=== PATIENT | female | born 1945 | race African-American/Black ===

== ENCOUNTER 2016-07-30 14:10 | Observation (INO) | payer MEDICARE, MEDICAID ==
[2016-07-30] MEDS ORDERED: ASPIRIN 81 MG TABLET, CHEWABLE PO ONE (14:46)
--- NOTE | 2016-07-30 14:50 | ER Document Report ---
ED Medical Screen (RME) - General Chief Complaint: Chest Pain > 30 Stated Complaint: CHEST PAIN Mode of Arrival: Ambulatory Information source: Patient Notes: 70 y/o F presents to ED c/o intermittently persistent episodes of left sided chest pain over the last 2 weeks. Reports hx of CABG. States has not taken BP medication today. I have greeted and performed a rapid initial assessment of this patient. A comprehensive ED assessment and evaluation of the patient, analysis of test results and completion of the medical decision making process will be conducted by additional ED providers. TRAVEL OUTSIDE OF THE [place] IN LAST 30 DAYS: No - Related Data Allergies/Adverse Reactions: amlodipine besylate [From [employer]] Adverse Reaction (Unknown, Verified 07/30/16 14:44) cough Past Medical History - Past Medical History Cardiac Medical History: Reports: Hx Coronary Artery Disease, Hx Heart Attack, Hx Hypercholesterolemia, Hx Hypertension Pulmonary Medical History: Denies: Hx Tuberculosis Past Surgical History: Reports: Hx Cardiac Catheterization - 1 stent, Hx Cardiac Surgery - CABGx3, Hx Coronary Artery Bypass Graft, Hx Coronary Stent, Hx Hysterectomy - Immunizations Hx Diphtheria, Pertussis, Tetanus Vaccination: No Physical Exam - Vital signs Vitals: Temp Pulse Resp BP Pulse Ox 97.9 F 58 L 20 215/89 H 98 07/30/16 14:40 07/30/16 14:40 07/30/16 14:40 07/30/16 14:40 07/30/16 14:40 - General General appearance: Appears well, Alert In distress: None - Respiratory Respiratory status: No respiratory distress Breath sounds: Normal Course - Vital Signs Vital signs: Temp Pulse Resp BP Pulse Ox 97.9 F 58 L 20 215/89 H 98 07/30/16 14:40 07/30/16 14:40 07/30/16 14:40 07/30/16 14:40 07/30/16 14:40
--- NOTE | 2016-07-30 16:37 | EKG REPORT ---
SEVERITY:- NORMAL ECG - SINUS RHYTHM : Confirmed by: Allegra Johnson MD 30-Jul-2016 16:35:22
[2016-07-30 16:55] LABS: ABSOLUTE BASOPHILS # (AUTO) 0.1 10^3/uL (0.0-0.2); ABSOLUTE EOSINOPHILS # (AUTO) 0.1 10^3/uL (0.0-0.6); ABSOLUTE LYMPHOCYTES (AUTO) 1.8 10^3/uL (0.5-4.7); ABSOLUTE MONOCYTES (AUTO) 0.6 10^3/uL (0.1-1.4); ABSOLUTE NEUT (AUTO) 3.6 10^3/uL (1.7-8.2); BASOPHILS % (AUTO) 1.4 % (0-2); EOSINOPHILS % (AUTO) 2.2 % (0-6); HEMATOCRIT 38.2 % (36.0-47.0); HEMOGLOBIN 12.9 g/dL (12.0-15.5); HGB HCT DIFFERENCE 0.5; LYMPHOCYTES % (AUTO) 28.7 % (13-45); MEAN CORPUSCULAR HEMOGLOBIN 30.9 pg (27.0-33.4); MEAN CORPUSCULAR HGB CONC 33.9 g/dL (32.0-36.0); MEAN CORPUSCULAR VOLUME 91 fl (80-97); MONOCYTES % (AUTO) 9.4 % (3-13); RED BLOOD COUNT 4.18 10^6/uL (3.72-5.28); RED CELL DISTRIBUTION WIDTH 14.2 % (11.5-14.0); SEGMENTED NEUTROPHILS % (AUTO) 58.3 % (42-78); WHITE BLOOD COUNT 6.2 10^3/uL (4.0-10.5)
[2016-07-30 17:02] LABS: PROTHROMBIN TIME 12.6 SEC (11.4-15.4)
[2016-07-30 17:03] LABS: PARTIAL THROMBOPLASTIN TIME 35.9 SEC (23.5-35.8)
[2016-07-30 17:07] LABS: ALANINE AMINOTRANSFERASE 30 U/L (9-52); ALBUMIN 4.5 g/dL (3.5-5.0); ALKALINE PHOSPHATASE 89 U/L (38-126); ANION GAP 16 (5-19); ASPARTATE AMINO TRANSFERASE 23 U/L (14-36); BILIRUBIN,TOTAL 0.5 mg/dL (0.2-1.3); BLOOD UREA NITROGEN 9 mg/dL (7-20); CALCIUM 10.4 mg/dL (8.4-10.2); CARBON DIOXIDE 24 mmol/L (22-30); CHLORIDE 104 mmol/L (98-107); CREATINE KINASE 142 U/L (30-135); CREATININE RESULT 0.73 mg/dL (0.52-1.25); GLUCOSE 94 mg/dL (75-110); SODIUM 143.5 mmol/L (137-145); TOTAL PROTEIN 8.1 g/dL (6.3-8.2)
[2016-07-30 17:19] LABS: CREATINE KINASE MB 1.63 ng/mL (<4.55); TROPONIN I 0.016 ng/mL
--- NOTE | 2016-07-30 18:13 | ER Document Report ---
ED Cardiac - General Chief Complaint: Chest Pain > 30 Stated Complaint: CHEST PAIN Time seen by provider: 18:09 Mode of Arrival: Ambulatory Information source: Patient Notes: This is a 70-year-old female with a history of coronary artery disease that his been under a lot of stress lately taking care of her father who presents to the emergency room with left-sided chest pain. Patient describes the pain as sometimes heaviness sometimes sharp, nonradiating. Currently she is pain-free. TRAVEL OUTSIDE OF THE [place] IN LAST 30 DAYS: No - HPI Patient complains to provider of: Chest pain Use of: denies: Alcohol, Amphetamines, Bath salts, Caffeine, Cocaine, Decongestants, Other Was the onset of pain: Sudden Is the pain a: New problem Chest pain location: Substernal Quality of pain: Heaviness Chest pain radiation location: Left shoulder Severity now: None Severity at worst: Mild Pain level currently: Denies Cardiac risk factors: Hypertension, Hx [place] Positive cardiac history: Yes Associated symptoms: denies: Shortness of breath Exacerbated by: Denies Relieved by: Nothing Similar symptoms previously: Yes Recently seen / treated by doctor: Yes - Related Data Allergies/Adverse Reactions: amlodipine besylate [From [employer]] Adverse Reaction (Unknown, Verified 07/30/16 14:44) cough Home Medications: Current Home Medications Losartan Potassium [Losartan Potassium] 1 tab PO DAILY 07/30/16 [History] Rosuvastatin Calcium [Rosuvastatin Calcium] 1 tab PO DAILY 07/30/16 [History] Sotalol HCl [Sotalol] 40 mg PO DAILY 07/30/16 [History] Past Medical History - General Information source: Patient - Social History Smoking Status: Never Smoker Chew tobacco use (# tins/day): No Frequency of alcohol use: None Drug Abuse: None Lives with: Family Family History: Reviewed & Not Pertinent - FATHER IN 90's AND DOING WELL Patient has suicidal ideation: No Patient has homicidal ideation: No - Past Medical History Cardiac Medical History: Reports: Hx Atrial Fibrillation, Hx Coronary Artery Disease, Hx Heart Attack, Hx Hypercholesterolemia, Hx Hypertension Pulmonary Medical History: Denies: Hx Tuberculosis Renal/ Medical History: Denies: Hx Peritoneal Dialysis Past Surgical History: Reports: Hx Cardiac Catheterization - 1 stent, Hx Cardiac Surgery - CABGx3, Hx Coronary Artery Bypass Graft, Hx Coronary Stent, Hx Hysterectomy - Immunizations Hx Diphtheria, Pertussis, Tetanus Vaccination: No Review of Systems - Review of Systems Notes: Review of systems: Constitutional: Denies fever, chills. EENT: Denies ear pain, sinus tenderness, throat pain, throat swelling. Cardiovascular: See H&P Respiratory: Denies wheezing, cough, hemoptysis. Abdomen: Denies abdominal pain, nausea, vomiting, diarrhea. Denies BRBPR or melena. Genitourinary: Denies dysuria, pyuria, hematuria, flank pain. Musculoskeletal: denies joint pain or swelling, denies back pain. Neurologic: Denies headache, photophobia, neck stiffness, weakness. Denies loss of bowel or bladder function. Denies saddle anesthesia. Skin: Denies rash, lesions. Physical Exam - Vital signs Vitals: Temp Pulse Resp BP Pulse Ox 97.9 F 58 L 20 215/89 H 98 07/30/16 14:40 07/30/16 14:40 07/30/16 14:40 07/30/16 14:40 07/30/16 14:40 Notes: Physical exam: GENERAL: 70-year-old female, alert and oriented 3, no acute distress HEAD: Atraumatic, normocephalic. EYES: Pupils equal round and reactive to light, extraocular movements intact, sclera anicteric, conjunctiva are normal. ENT: TMs normal, nares patent, oropharynx clear without exudates. Moist mucous membranes. NECK: Normal range of motion, supple without lymphadenopathy or JVD. LUNGS: Breath sounds clear to auscultation bilaterally and equal. No wheezes rales or rhonchi. HEART: Regular rate and rhythm without murmurs, rubs or gallops. ABDOMEN: Soft, normoactive bowel sounds. No tenderness to palpation. No guarding, no rebound. No masses appreciated. EXTREMITIES: Normal range of motion, no pitting or edema. No clubbing or cyanosis. NEUROLOGICAL: Cranial nerves II through XII grossly intact. Normal speech, normal gait. PSYCH: Normal mood, normal affect. SKIN: Warm, Dry, normal turgor, no rashes or lesions noted. Course - Vital Signs Vital signs: Temp Pulse Resp BP Pulse Ox 97.9 F 55 L 15 129/72 H 100 07/30/16 14:40 07/30/16 19:16 07/30/16 21:01 07/30/16 21:01 07/30/16 17:00 - Laboratory Result Diagrams: 07/30/16 16:42 07/30/16 16:42 Laboratory results interpreted by me: 07/30/16 07/30/16 07/30/16 16:42 16:42 16:42 RDW 14.2 H APTT 35.9 H Calcium 10.4 H Creatine Kinase 142 H Ur Leukocyte Esterase 07/30/16 18:50 RDW APTT Calcium Creatine Kinase Ur Leukocyte Esterase SMALL H - Diagnostic Test Radiology reviewed: Image reviewed, Reports reviewed - Chest x-ray shows no infiltrates or effusions - EKG Interpretation by Me Rate: Normal Rhythm: NSR - EKG shows normal sinus rhythm with a ventricular rate of 61, no acute ST-T wave changes Discharge - Discharge Clinical Impression: chest pain Condition: Stable Disposition: ADMITTED OBSERVATION Admitting Provider: Hospitalist - Dr. Stafford Unit Admitted: Telemetry
[2016-07-30] MEDS ORDERED: ACETAMINOPHEN 325 MG TABLET PO PRN (18:52)
[2016-07-30] MEDS ORDERED: ONDANSETRON HCL INJ/PF 4 MG/2 ML SDV IV PRN ×2 (18:52→20:07)
[2016-07-30 18:58] LABS: APPEARANCE,URINE CLEAR; BILIRUBIN,URINE NEGATIVE (NEGATIVE); GLUCOSE, URINE NEGATIVE (NEGATIVE); KETONES,URINE NEGATIVE (NEGATIVE); LEUKOCYTE ESTERASE,URINE SMALL (NEGATIVE); NITRITE,URINE NEGATIVE (NEGATIVE); PROTEIN,URINE NEGATIVE (NEGATIVE); URINE SPECIFIC GRAVITY 1.008; UROBILINOGEN,URINE NEGATIVE mg/dL (<2.0)
--- NOTE | 2016-07-30 19:10 | PDOC H&P ---
History of Present Illness Admission Date/PCP: BHARTI KINCAID MD Patient complains of: Chest pain History of Present Illness: PREET MEDRANO is a 70 year old female, with atrial fibrillation on chronic anticoagulation, coronary artery disease with coronary artery bypass grafting in the past, hypertension as been dealing with chest pain for about 2-1/2 months. Pain is located at the left side and it is sharp in nature. It is no relation to activity. It is associated with shortness of breath and some sweating. At times there will be some nausea but no vomiting. Patient will have episodes of retching and eventually passing gas which is bittery in taste and the discomfort would get relieved. Patient was seen by rn transitional where the patient had workups reportedly were negative. The nature of the pain got worse in terms of sharpness earlier to date is why she presented to the hospital and was referred for admission. Past Medical History Past Medical History: Medications reconciliation pending verification for the patient's pharmacist Cardiac Medical History: Reports: Atrial Fibrillation, Coronary Artery Disease, Myocardial Infarction, Hyperlipidema, Hypertension Pulmonary Medical History: Denies: Tuberculosis Musculoskeltal Medical History: Reports: Gout Past Surgical History Past Surgical History: Reports: Cardiac Catheterization - 1 stent, Coronary Artery Bypass Graft, Coronary Stent, Hysterectomy Social History Information Source: Patient Smoking Status: Never Smoker Frequency of Alcohol Use: None Hx Recreational Drug Use: No Drugs: None Hx Prescription Drug Abuse: No Family History Family History: CAD, Other - Chronic kidney disease, brain aneurysm Parental Family History Reviewed: Yes Children Family History Reviewed: Yes Sibling(s) Family History Reviewed.: Yes Medication/Allergy Home Medications: Aspirin [Ecotrin 81 mg EC Tablet] 81 mg PO DAILY 07/31/13 Furosemide [Lasix] 40 mg PO DAILY 09/26/14 Potassium Chloride [K-Tab ER] 10 meq PO DAILY 09/26/14 Apixaban [Eliquis 5 mg Tablet] 5 mg PO Q12 #60 tablet 09/28/14 Lisinopril [Prinivil 5 mg Tablet] 10 mg PO DAILY #30 tablet 09/28/14 Metoprolol Tartrate [Lopressor 25 mg Tablet] 12.5 mg PO Q12 #30 tab 09/28/14 Allergies/Adverse Reactions: amlodipine besylate [From [facility]] Adverse Reaction (Unknown, Verified 07/30/16 14:44) cough Review of Systems Constitutional: ABSENT: chills, fever(s), headache(s), weakness, weight gain, weight loss Eyes: ABSENT: visual disturbances Ears: ABSENT: hearing changes Nose, Mouth, and Throat: ABSENT: mouth pain, sore throat Cardiovascular: PRESENT: chest pain, edema - Chronic left. ABSENT: dyspnea on exertion, orthropnea, palpitations Respiratory: PRESENT: dyspnea. ABSENT: cough, hemoptysis Gastrointestinal: ABSENT: abdominal pain, constipation, diarrhea, hematemesis, hematochezia, melena, nausea, vomiting Genitourinary: ABSENT: difficulty urinating, dysuria, hematuria Musculoskeletal: ABSENT: joint swelling Integumentary: ABSENT: pruritus, rash, wounds Neurological: ABSENT: abnormal gait, abnormal speech, confusion, dizziness, focal weakness, syncope Psychiatric: ABSENT: anxiety, depression, homidical ideation, suicidal ideation Endocrine: ABSENT: cold intolerance, heat intolerance, polydipsia, polyuria Hematologic/Lymphatic: ABSENT: easy bleeding, easy bruising Physical Exam Vital Signs: Temp Pulse Resp BP Pulse Ox 97.9 F 56 L 14 182/88 H 100 07/30/16 14:40 07/30/16 17:00 07/30/16 17:00 07/30/16 17:00 07/30/16 17:00 Intake & Output 07/29/16 07/30/16 07/31/16 06:59 06:59 06:59 Weight 90.2 kg General appearance: PRESENT: no acute distress, cooperative, obese Head exam: PRESENT: atraumatic, normocephalic Eye exam: PRESENT: conjunctiva pink, EOMI, PERRLA. ABSENT: scleral icterus Ear exam: PRESENT: normal external ear exam. ABSENT: drainage Mouth exam: PRESENT: moist, neck supple, tongue midline Throat exam: ABSENT: post pharyngeal erythema, tonsillar erythema Neck exam: ABSENT: carotid bruit, JVD, lymphadenopathy, thyromegaly Respiratory exam: PRESENT: clear to auscultation shasha. ABSENT: rales, rhonchi, wheezes Cardiovascular exam: PRESENT: RRR, +S1, +S2. ABSENT: diastolic murmur, rubs, systolic murmur Pulses: PRESENT: normal dorsalis pedis pul Vascular exam: PRESENT: normal capillary refill GI/Abdominal exam: PRESENT: normal bowel sounds, soft. ABSENT: distended, guarding, mass, organolmegaly, rebound, tenderness Rectal exam: PRESENT: deferred Extremities exam: PRESENT: full ROM. ABSENT: calf tenderness, clubbing, pedal edema Neurological exam: PRESENT: alert, awake, oriented to person, oriented to place , oriented to time, oriented to situation Psychiatric exam: PRESENT: appropriate affect, normal mood. ABSENT: homicidal ideation, suicidal ideation Skin exam: PRESENT: dry, intact, warm. ABSENT: cyanosis, rash Results Laboratory Results: 07/30/16 16:42 07/30/16 16:42 07/30/16 07/30/16 16:42 16:42 WBC 6.2 RBC 4.18 Hgb 12.9 Hct 38.2 MCV 91 MCH 30.9 MCHC 33.9 RDW 14.2 H Plt Count 216 Seg Neutrophils % 58.3 Lymphocytes % 28.7 Monocytes % 9.4 Eosinophils % 2.2 Basophils % 1.4 Absolute Neutrophils 3.6 Absolute Lymphocytes 1.8 Absolute Monocytes 0.6 Absolute Eosinophils 0.1 Absolute Basophils 0.1 Sodium 143.5 Potassium 4.0 Chloride 104 Carbon Dioxide 24 Anion Gap 16 BUN 9 Creatinine 0.73 Est GFR ( Amer) > 60 Est GFR (Non-Af Amer) > 60 Glucose 94 Calcium 10.4 H Total Bilirubin 0.5 AST 23 ALT 30 Alkaline Phosphatase 89 Total Protein 8.1 Albumin 4.5 07/30/16 07/30/16 16:42 16:42 Creatine Kinase 142 H CK-MB (CK-2) 1.63 Troponin I 0.016 Impressions: Chest X-Ray 07/30/16 14:50 IMPRESSION: Stable cardiomegaly. Old CABG. No acute infiltrates. Assessment & Plan - Diagnosis (1) Chest pain Qualifiers: Chest pain type: unspecified Qualified Code(s): R07.9 - Chest pain, unspecified Is this a current diagnosis for this admission?: Yes (2) Hypercalcemia Is this a current diagnosis for this admission?: Yes (3) Coronary artery disease Qualifiers: Coronary Disease-Associated Artery/Lesion type: [place] artery [place] vs. transplanted heart: [place] heart Associated angina: without angina Qualified Code(s): I25.10 - Atherosclerotic heart disease of [place] coronary artery without angina pectoris Is this a current diagnosis for this admission?: Yes (4) Hypertension Qualifiers: Hypertension type: essential hypertension Qualified Code(s): I10 - Essential (primary) hypertension Is this a current diagnosis for this admission?: Yes (5) Paroxysmal atrial fibrillation Is this a current diagnosis for this admission?: Yes (6) Gout Qualifiers: Gout site: unspecified site Gout etiology: unspecified cause Chronicity: unspecified Qualified Code(s): M10.9 - Gout, unspecified Is this a current diagnosis for this admission?: Yes - Time Time Spent: 30 to 50 Minutes - Plan Summary Plan Summary: Admit the patient to observation. The patient on oxygen and continue her aspirin. She is on long-term anticoagulation with eliquis. We will serially monitor cardiac enzymes and if negative patient can be discharged home. She prefers to have a follow-up with her rn transitional for further evaluation or stress test on an outpatient basis. In the meantime we will also do a d-dimer. Patient has some underlying GI symptoms as well. We will try proton pump inhibitor she will help her symptoms. Further testing depends on initial evaluation as outlined above.
[2016-07-30] MEDS: APIXABAN 5 MG TABLET PO SCH (22:55)
[2016-07-30] MEDS: METOPROLOL TARTRATE 25 MG TABLET PO SCH (22:57)
[2016-07-30] MEDS: NORMAL SALINE 1000 ML 1,000 ML IV PRN (22:58)
[2016-07-30 23:40] LABS: CREATINE KINASE MB 1.2 ng/mL (<4.55); TROPONIN I 0.027 ng/mL
[2016-07-31 05:39] LABS: ANION GAP 7 (5-19); BLOOD UREA NITROGEN 10 mg/dL (7-20); CALCIUM 9.2 mg/dL (8.4-10.2); CARBON DIOXIDE 26 mmol/L (22-30); CHLORIDE 109 mmol/L (98-107); CREATINE KINASE 111 U/L (30-135); CREATININE RESULT 0.64 mg/dL (0.52-1.25); GLUCOSE 103 mg/dL (75-110); POTASSIUM 3.7 mmol/L (3.6-5.0); SODIUM 141.7 mmol/L (137-145)
[2016-07-31 05:50] LABS: CREATINE KINASE MB 1.15 ng/mL (<4.55)
[2016-07-31 06:00] LABS: TROPONIN I < 0.012 ng/mL
[2016-07-31] MEDS ORDERED: LANSOPRAZOLE 30 MG TAB.RAP.DR PO SCH (06:00)
[2016-07-31] MEDS: NORMAL SALINE 1000 ML 1,000 ML IV PRN (09:40)
[2016-07-31] MEDS: METOPROLOL TARTRATE 25 MG TABLET PO SCH (09:53)
[2016-07-31] MEDS ORDERED: DOCUSATE SODIUM 100 MG CAPSULE PO SCH (10:00)
[2016-07-31] MEDS ORDERED: ASPIRIN 81 MG TABLET, ENT COATED PO SCH (10:00)
[2016-07-31] MEDS ORDERED: LISINOPRIL 5 MG TABLET PO SCH (10:00)
[2016-07-31 11:58] LABS: CREATINE KINASE MB 1.18 ng/mL (<4.55)
[2016-07-31 12:02] LABS: TROPONIN I < 0.012 ng/mL
[2016-07-31] MEDS: APIXABAN 5 MG TABLET PO SCH (16:02)
[2016-07-31 16:59] VITALS: BP 163/65
--- NOTE | 2016-08-01 07:46 | PDOC DISCHARGE SUMMARY ---
General - Admit/Disc Date/PCP Admission Date/Primary Care Provider: 07/30/16 18:52 BHARTI KINCAID MD Discharge Date: 07/31/16 - Discharge Diagnosis (1) Chest pain Is this a current diagnosis for this admission?: Yes (2) Hypercalcemia Is this a current diagnosis for this admission?: Yes (3) Coronary artery disease Is this a current diagnosis for this admission?: Yes (4) Hypertension Is this a current diagnosis for this admission?: Yes (5) Paroxysmal atrial fibrillation Is this a current diagnosis for this admission?: Yes (6) Gout Is this a current diagnosis for this admission?: Yes - Additional Information Resuscitation Status: Full Code Discharge Diet: Cardiac - low-fat low-salt Discharge Activity: Activity As Tolerated, Balance Activity w/Rest Home Medications: Apixaban [Eliquis 5 mg Tablet] 5 mg PO BID 07/31/16 Ciprofloxacin HCl [Cipro 500 mg Tablet] 500 mg PO BID #6 tablet 07/31/16 Furosemide 20 mg PO DAILY 07/31/16 Losartan Potassium 50 mg PO DAILY 07/31/16 Meclizine HCl 25 mg PO BID 07/31/16 Nifedipine [Nifedipine ER] 30 mg PO DAILY 07/31/16 Potassium Chloride 10 meq PO DAILY 07/31/16 Rosuvastatin Calcium [Crestor 20 mg Tablet] 20 mg PO QHS 07/31/16 Sotalol HCl [Sotalol] 80 mg PO BID 07/31/16 History of Present Illness Patient complains of: Chest pain History of Present Illness: PREET MEDRANO is a 70 year old female, with atrial fibrillation on chronic anticoagulation, coronary artery disease with coronary artery bypass grafting in the past, hypertension as been dealing with chest pain for about 2-1/2 months. Pain is located at the left side and it is sharp in nature. It is no relation to activity. It is associated with shortness of breath and some sweating. At times there will be some nausea but no vomiting. Patient will have episodes of retching and eventually passing gas which is bittery in taste and the discomfort would get relieved. Patient was seen by dispatcher maintenance service where the patient had workups reportedly were negative. The nature of the pain got worse in terms of sharpness earlier to date is why she presented to the hospital and was referred for admission. Hospital Course Hospital Course: The patient was admitted to telemetry. Serial cardiac enzymes were obtained and they were negative. Her d-dimer was normal. In terms of her hypercalcemia she was hydrated with normal saline, and subsequent monitoring normalized. Her diuretics were held. The patient's improved. She was placed on antiplatelet therapy as well as nasal cannula oxygen. She was continued on her apixiban for paroxysmal A. fib. There is no hospital stays unremarkable. The patient wants to continue workup on an outpatient basis with her dispatcher maintenance service. She was advised to see her dispatcher maintenance service in 1-2 weeks. Physical Exam Vital Signs: Temp Pulse Resp BP Pulse Ox 97.9 F 50 L 16 163/65 H 99 07/31/16 16:56 07/31/16 16:56 07/31/16 16:56 07/31/16 16:56 07/31/16 16:56 Intake & Output 07/31/16 08/01/16 08/02/16 06:59 06:59 06:59 Weight 92.5 kg General appearance: PRESENT: no acute distress, cooperative Head exam: PRESENT: normocephalic Eye exam: PRESENT: conjunctiva pink, EOMI Mouth exam: PRESENT: moist, neck supple Neck exam: ABSENT: JVD Respiratory exam: PRESENT: clear to auscultation shasha Cardiovascular exam: PRESENT: RRR GI/Abdominal exam: PRESENT: soft Neurological exam: PRESENT: alert, awake, oriented to situation Skin exam: ABSENT: cyanosis Results Laboratory Results: 07/31/16 05:05 07/30/16 07/30/16 07/31/16 23:04 23:04 05:05 Creatine Kinase 127 111 CK-MB (CK-2) 1.20 Troponin I 0.027 07/31/16 07/31/16 07/31/16 05:05 11:11 11:11 Creatine Kinase 115 CK-MB (CK-2) 1.15 1.18 Troponin I < 0.012 < 0.012 Impressions: Chest X-Ray 07/30/16 14:50 IMPRESSION: Stable cardiomegaly. Old CABG. No acute infiltrates. Qualifiers PATEINT BEING DISCHARGED WITH ANY OF THE FOLLOWING DIAGNOSIS?: No Plan Discharge Plan: Follow-up with primary care physician in one week. Follow-up with cardiology in 1-2 weeks. Time Spent: Less than 30 Minutes
== END 2016-07-31 17:12 | disposition home or self-care (01) ==
LOC: ER 14:10 → EH 18:52 → 4S 07-31 00:27
PROC: 3E0337Z Introduction of Electrolytic and Water Balance Substance into Peripheral Vein, Percutaneous Approach (ICD-10-PCS; principal; 2016-07-30)
PROC: 3E0337Z Introduction of Electrolytic and Water Balance Substance into Peripheral Vein, Percutaneous Approach (ICD-10-PCS; 2016-07-30)
DX: R07.9 Chest pain, unspecified (principal); E83.52 Hypercalcemia; I25.10 Atherosclerotic heart disease of native coronary artery without angina pectoris; I10 Essential (primary) hypertension; I48.0 Paroxysmal atrial fibrillation; M10.9 Gout, unspecified; Z79.01 Long term (current) use of anticoagulants; Z95.1 Presence of aortocoronary bypass graft; I25.2 Old myocardial infarction
CPT/HCPCS: 93005; 99285; 96360; 96361; 36415 ×2; 82553 ×2; 82550 ×2; 85025; 85610; 85730; 80048; 80053; 81001; 84484 ×2; 85379; 71020; 93010; G0378 ×2; A9270 ×5; J7030 ×2

== ENCOUNTER → 2017-04-13 | Outpatient (CLI) | payer MEDICARE, MEDICAID ==
--- NOTE | 2017-04-13 14:37 | WOMENS IMAGING REPORT ---
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 LIMITATIONS: None. FINDINGS: LUMBAR SPINE: The bone mineral density (BMD) measured from L1-L4 in the AP projection correlates with a T-score of -0.7, which is normal as defined by the World Health Organization. HIP: The bone mineral density (BMD) measured in the left hip correlates with a T-score of -1.3 in the femo ral neck, which is osteopenia as defined by the World Health Organization. IMPRESSION: 1. LUMBAR SPINE: NORMAL. 2. HIP: OSTEOPENIA. COMMENT: The patient's 10 year risk of major osteoporotic fracture is 3.5%. Her 10 year risk of hip fracture is 0.3%. The World Health Organization defines low BMD as follows: T-score: Normal: Greater than -1.0 Osteopenia: Between -1.0 and -2.5 Osteoporosis: Less than -2.5 without fractures Established osteoporosis: Less than -2.5 with fractures In general, you may wish to consider: Diagnosis Treatment Follow-up DEXA Normal BMD Prevention 2-3 years Osteopenia Prevention/Therapy 1-2 years Osteoporosis Therapy Yearly TECHNICAL DOCUMENTATION: JOB ID: [id number]- All Rights Reserved
--- NOTE | 2017-04-14 19:19 | WOMENS IMAGING REPORT ---
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 LIMITATIONS: None. FINDINGS: No masses, calcifications or architectural distortion. No areas of suspicion. Read with the assistance of CAD. .[facility] - R2 Cenova Version 1.3 .[facility] - R2 Cenova Version 1.3 .[facility] - R2 Cenova Version 2.4 .[facility] [place] - R2 Cenova Version 2.4 .[facility] - R2 [place] Version 9.2 IMPRESSION: NORMAL MAMMOGRAM. BIRADS 1. BREAST DENSITY: b. There are scattered areas of fibroglandular density. BIRAD: 1 NEGATIVE RECOMMENDATION: ROUTINE SCREENING Please continue yearly bilateral screening tomosynthesis in April 2018 COMMENT: The patient has been notified of the results by letter per SA requirements. Additional no tification policies are in place for contacting patient with suspicious or incomplete findings. Quality ID #[id number]: The [employer] recommends an annual screening mammogram for women aged 40 years or over. This facility utilizes a reminder system to ensure that all patients receive reminder letters, and/or direct phone calls for appointments. This includes reminders for routine scr eening mammograms, diagnostic mammograms, or other Breast Imaging Interventions when appropriate. Th is patient will be placed in the appropriate reminder system. The [employer] (ACR) has developed recommendations for screening MRI of the breast s in certain patient populations, to be used in conjunction with mammography. Breast MRI surveillanc e may be appropriate for women with more than 20% lifetime risk of developing breast cancer as deter mined by genetic testing, significant family history of the disease, or history of mantle radiation f or Hodgkins Disease. ACR Practice Guidelines 2008. DBT Technology DBT is a type of tomographic mammography. With conventional mammography, overlapping breast tissue ma y make lesions difficult to detect, even with good compression. DBT uses an x-ray tube that rotates a round the breast, taking images at different angles. These images are then combined to create thin sl ices of the breast that the radiologist can view as a 3D reconstruction. The [employer] unit can perform full-field digital mammograms (2D imaging); or DBT (3D imaging); or both, in a combination mode that quickly performs both the mammogram and the tomosynthesis scan while the breast is still compressed. PQRS 6045F: Fluoroscopic imaging is not utilized for breast tomosynthesis. TECHNICAL DOCUMENTATION: FINDING NUMBER: (1) ASSESSMENT: (1) JOB ID: [id number] [facility]- All Rights Reserved
== END ==
LOC: WI 13:13
PROVIDERS: ATTEND Internal Medicine
DX: Z12.31 Encounter for screening mammogram for malignant neoplasm of breast (principal); M81.0 Age-related osteoporosis without current pathological fracture
CPT/HCPCS: 77063; 77080; G0202; 77067

== ENCOUNTER → 2017-08-27 | Outpatient (CLI) | payer MEDICARE, MEDICAID ==
[2017-08-27 12:23] LABS: ANION GAP 10 (5-19); BLOOD UREA NITROGEN 13 mg/dL (7-20); CALCIUM 10.1 mg/dL (8.4-10.2); CARBON DIOXIDE 28 mmol/L (22-30); CHLORIDE 107 mmol/L (98-107); GLUCOSE 192 mg/dL (75-110); POTASSIUM 3.6 mmol/L (3.6-5.0); SODIUM 144.8 mmol/L (137-145)
== END ==
LOC: LAB 11:28
PROVIDERS: ATTEND Family Medicine
DX: M25.512 Pain in left shoulder (principal); M25.511 Pain in right shoulder; R53.81 Other malaise
CPT/HCPCS: 36415; 80048; 84443

== ENCOUNTER 2017-11-26 11:15 | Inpatient (IN) | payer MEDICARE, MEDICAID ==
[2017-11-26] MEDS ORDERED: ASPIRIN 81 MG TABLET, CHEWABLE PO ONE (11:21)
--- NOTE | 2017-11-26 11:52 | ER Document Report ---
ED Medical Screen (RME) - General Chief Complaint: Chest Pain Stated Complaint: CHEST PAIN Time Seen by Provider: 11/26/17 11:21 Mode of Arrival: Ambulatory Information source: Patient Notes: 72-year-old female history of ACiro chauhan on metoprolol and lisinopril who forgot to take her medications today presents with complaints of chest pain, she notes she has had chest pain for a while but now it happes more often and is sharper I have greeted and performed a rapid initial assessment of this patient. A comprehensive ED assessment and evaluation of the patient, analysis of test results and completion of the medical decision making process will be conducted by additional ED providers. PHYSICAL EXAMINATION: GENERAL: Well-appearing, well-nourished and in no acute distress. hypertensive HEAD: Atraumatic, normocephalic. EYES: Pupils equal round extraocular movements intact, conjunctiva are normal. ENT: Nares patent NECK: Normal range of motion LUNGS: No respiratory distress Musculoskeletal: Normal range of motion NEUROLOGICAL: Normal speech, normal gait. PSYCH: Normal mood, normal affect. SKIN: Warm, Dry, normal turgor, no rashes or lesions noted. TRAVEL OUTSIDE OF THE [place] IN LAST 30 DAYS: No - Related Data Allergies/Adverse Reactions: amlodipine besylate [From [employer]] Adverse Reaction (Unknown, Verified 11/26/17 11:20) cough Past Medical History - Past Medical History Cardiac Medical History: Reports: Hx Atrial Fibrillation, Hx Coronary Artery Disease, Hx Heart Attack, Hx Hypercholesterolemia, Hx Hypertension Denies: Hx DVT, Hx Pulmonary Embolism Pulmonary Medical History: Reports: Hx Sleep Apnea - CPAP pressure 15, room air Denies: Hx Asthma, Hx COPD, Hx Tuberculosis Neurological Medical History: Denies: Hx Seizures Endocrine Medical History: Denies: Hx Diabetes Mellitus Type 1, Hx Diabetes Mellitus Type 2, Hx Hyperthyroidism, Hx Hypothyroidism Renal/ Medical History: Denies: Hx Peritoneal Dialysis GI Medical History: Reports: Hx Gastroesophageal Reflux Disease. Denies: Hx Cirrhosis, Hx Hepatitis Musculoskeltal Medical History: Reports Hx Arthritis, Reports Hx Gout Psychiatric Medical History: Denies: Hx Depression Infectious Medical History: Denies: Hx C-Diff, Hx Hepatitis, Hx MRSA Past Surgical History: Reports: Hx Cardiac Catheterization - October 05, 2016, Dr. Elvis [facility] Hx Cardiac Surgery - CABGx3, Hx Coronary Artery Bypass Graft - 2006, three-vessel, Hx Coronary Stent, Hx Hysterectomy - Immunizations Hx Diphtheria, Pertussis, Tetanus Vaccination: No Physical Exam - Vital signs Vitals: Temp Pulse Resp BP Pulse Ox 98.6 F 53 L 15 209/66 H 99 11/26/17 11:35 11/26/17 11:35 11/26/17 11:35 11/26/17 11:35 11/26/17 11:35 Course - Vital Signs Vital signs: Temp Pulse Resp BP Pulse Ox 98.6 F 53 L 15 209/66 H 99 11/26/17 11:35 11/26/17 11:35 11/26/17 11:35 11/26/17 11:35 11/26/17 11:35 Doctor's Discharge - Discharge Referrals: GROVER ROME MD [Primary Care Provider] - Follow up as needed
--- NOTE | 2017-11-26 11:54 | ER Document Report ---
ED Cardiac <RENETTA JOHN - Last Filed: 11/26/17 13:35> - General Mode of Arrival: Ambulatory Information source: Patient TRAVEL OUTSIDE OF THE [place] IN LAST 30 DAYS: No <ISAK MOORE - Last Filed: 11/26/17 14:46> - General Chief Complaint: Chest Pain Stated Complaint: CHEST PAIN Time Seen by Provider: 11/26/17 11:21 Notes: Patient is a 72-year-old female who presents to the emergency department today with complaints of pain in her left breast that she describes as "deep" and sharp. Patient states she has been having pain for 4-5 months however it has gotten much more severe over the last few days. Patient states overnight last night was the most severe it has ever been. Patient is on Eliquis for A. fib. Patient states she has had associated dyspnea on exertion. (ISAK MOORE) - Related Data Allergies/Adverse Reactions: amlodipine besylate [From [employer]] Adverse Reaction (Unknown, Verified 11/26/17 11:20) cough Past Medical History - General Information source: Patient - Social History Smoking Status: Never Smoker Cigarette use (# per day): No Frequency of alcohol use: None Drug Abuse: None Family History: Reviewed & Not Pertinent - Past Medical History Cardiac Medical History: Reports: Hx Atrial Fibrillation, Hx Coronary Artery Disease, Hx Heart Attack, Hx Hypercholesterolemia, Hx Hypertension Pulmonary Medical History: Reports: Hx Sleep Apnea - CPAP pressure 15, room air GI Medical History: Reports: Hx Gastroesophageal Reflux Disease Musculoskeltal Medical History: Reports Hx Arthritis, Reports Hx Gout Past Surgical History: Reports: Hx Cardiac Catheterization - October 05, 2016, [facility]. [facility] Hx Cardiac Surgery - CABGx3, Hx Coronary Artery Bypass Graft - 2005, three-vessel, Hx Coronary Stent, Hx Hysterectomy - Immunizations Hx Diphtheria, Pertussis, Tetanus Vaccination: No <ISAK MOORE - Last Filed: 11/26/17 14:46> Review of Systems - Review of Systems Constitutional: No symptoms reported EENT: No symptoms reported Cardiovascular: See HPI, Chest pain Respiratory: See HPI, Short of breath Gastrointestinal: No symptoms reported Genitourinary: No symptoms reported Female Genitourinary: No symptoms reported Musculoskeletal: No symptoms reported Skin: No symptoms reported Hematologic/Lymphatic: No symptoms reported Neurological/Psychological: No symptoms reported -: Yes All other systems reviewed and negative <ISAK MOORE - Last Filed: 11/26/17 14:46> Physical Exam <RENETTA JOHN Francesca - Last Filed: 11/26/17 13:35> <ISAK MOORE - Last Filed: 11/26/17 14:46> - Vital signs Vitals: Pulse Ox 97 11/26/17 11:21 - Notes Notes: Physical Exam: General: Alert, appears well. HEENT: Normocephalic. Atraumatic. PERRL. Extraocular movements intact. Oropharynx clear. Neck: Supple. Non-tender. Respiratory: No respiratory distress. Clear and equal breath sounds bilaterally. Cardiovascular: Regular rate and rhythm. Abdominal: Normal Inspection. Non-tender. No distension. Normal Bowel Sounds. Back: Non-tender. No deformity or step off. Extremities: Moves all four extremities. Upper extremities: Normal inspection. Normal ROM. Lower extremities: Normal inspection. No edema. Normal ROM. Neurological: Normal cognition. AAOx4. Normal speech. Psychological: Normal affect. Normal Mood. Skin: Warm. Dry. Normal color. (ISAK MOORE) Course - Laboratory Result Diagrams: 11/26/17 12:13 11/26/17 12:13 <RENETTA JOHN Francesca - Last Filed: 11/26/17 13:35> - Laboratory Result Diagrams: 11/26/17 12:13 11/26/17 12:13 <ISAK MOORE - Last Filed: 11/26/17 14:46> - Re-evaluation Re-evalutation: 11/26/17 13:32 Initial workup negative. Due to patient's risk factors will be admitted for further chest pain rule out evaluation. (RENETTA JOHN) - Vital Signs Vital signs: Temp Pulse Resp BP Pulse Ox 98.6 F 53 L 18 164/68 H 100 11/26/17 11:35 11/26/17 11:35 11/26/17 14:00 11/26/17 13:02 11/26/17 14:00 - Laboratory Laboratory results interpreted by me: 11/26/17 11/26/17 12:13 12:13 Hct 35.4 L RDW 15.2 H Chloride 109 H - EKG Interpretation by Me Additional EKG results interpreted by me: 11/26/17 13:35 1124am Rate of 52 Atrial fibrillation Meets criteria for left ventricular hypertrophy leads I and aVL No significant change from 01/17/2017 (RENETTA JOHN) Discharge - Discharge Admitting Provider: NEELA Orellana Unit Admitted: Telemetry <RENETTA JOHN - Last Filed: 11/26/17 13:35> <ISAK MOORE - Last Filed: 11/26/17 14:46> - Discharge Clinical Impression: Chest pain Qualifiers: Chest pain type: unspecified Qualified Code(s): R07.9 - Chest pain, unspecified Condition: Good Disposition: ADMITTED OBSERVATION Scribe Documentation - Scribe Written by Scribe:: Christopher Boyd, 11/26/2017 1446 acting as scribe for :: Raheem <ISAK MOORE - Last Filed: 11/26/17 14:46>
--- NOTE | 2017-11-26 12:24 | RADIOLOGY REPORT (SQ) ---
EXAM DESCRIPTION: CHEST SINGLE VIEW COMPLETED DATE/TIME: 11/26/2017 12:03 pm REASON FOR STUDY: chest pain COMPARISON: 01/17/2017 EXAM PARAMETERS: NUMBER OF VIEWS: One view. TECHNIQUE: Single frontal radiographic view of the chest acquired. RADIATION DOSE: NA LIMITATIONS: None. FINDINGS: LUNGS AND PLEURA: No opacities, masses or pneumothorax. No pleural effusion. MEDIASTINUM AND HILAR STRUCTURES: No masses. Contour normal. HEART AND VASCULAR STRUCTURES: Heart size is borderline. There is no failure. BONES: No acute findings. HARDWARE: Sternotomy wires. Graft markers. OTHER: No other significant finding. IMPRESSION: Cardiomegaly without CHF. TECHNICAL DOCUMENTATION: JOB ID: [id number] [employer]- All Rights Reserved Reading location - IP/workstation name: [email or web address]
[2017-11-26 12:33] LABS: ABSOLUTE BASOPHILS # (AUTO) 0.1 10^3/uL (0.0-0.2); ABSOLUTE EOSINOPHILS # (AUTO) 0.1 10^3/uL (0.0-0.6); ABSOLUTE LYMPHOCYTES (AUTO) 1.3 10^3/uL (0.5-4.7); ABSOLUTE MONOCYTES (AUTO) 0.6 10^3/uL (0.1-1.4); ABSOLUTE NEUT (AUTO) 3.6 10^3/uL (1.7-8.2); BASOPHILS % (AUTO) 1.2 % (0-2); EOSINOPHILS % (AUTO) 2.3 % (0-6); HEMATOCRIT 35.4 % (36.0-47.0); HEMOGLOBIN 12.1 g/dL (12.0-15.5); LYMPHOCYTES % (AUTO) 22.6 % (13-45); MEAN CORPUSCULAR HEMOGLOBIN 31.3 pg (27.0-33.4); MEAN CORPUSCULAR VOLUME 92 fl (80-97); MONOCYTES % (AUTO) 10.5 % (3-13); PLATELET COUNT 192 10^3/uL (150-450); RED BLOOD COUNT 3.86 10^6/uL (3.72-5.28); RED CELL DISTRIBUTION WIDTH 15.2 % (11.5-14.0); SEGMENTED NEUTROPHILS % (AUTO) 63.4 % (42-78); TOTAL CELLS COUNTED % (AUTO) 100 %; WHITE BLOOD COUNT 5.7 10^3/uL (4.0-10.5)
[2017-11-26 12:52] LABS: ALANINE AMINOTRANSFERASE 18 U/L (9-52); ALBUMIN 3.8 g/dL (3.5-5.0); ALKALINE PHOSPHATASE 57 U/L (38-126); ANION GAP 9 (5-19); ASPARTATE AMINO TRANSFERASE 16 U/L (14-36); BILIRUBIN,DIRECT 0.2 mg/dL (0.0-0.4); BILIRUBIN,TOTAL 0.5 mg/dL (0.2-1.3); BLOOD UREA NITROGEN 12 mg/dL (7-20); CALCIUM 9.9 mg/dL (8.4-10.2); CARBON DIOXIDE 26 mmol/L (22-30); CHLORIDE 109 mmol/L (98-107); CREATINE KINASE 65 U/L (30-135); GLUCOSE 93 mg/dL (75-110); POTASSIUM 3.8 mmol/L (3.6-5.0); SODIUM 144.1 mmol/L (137-145); TOTAL PROTEIN 6.5 g/dL (6.3-8.2)
[2017-11-26 13:04] LABS: CREATINE KINASE MB 1.67 ng/mL (<4.55); TROPONIN I 0.019 ng/mL
[2017-11-26] MEDS ORDERED: IPRATROPIUM/ALBUTEROL 0.5-2.5 MG/3 ML AMPUL NEB PRN (15:13)
[2017-11-26] MEDS ORDERED: ACETAMINOPHEN 325 MG TABLET PO PRN (15:13)
[2017-11-26] MEDS ORDERED: MAGNESIUM HYDROXIDE SUSP 30 ML UDCUP PO PRN (15:20)
[2017-11-26] MEDS ORDERED: DOCUSATE SODIUM 100 MG CAPSULE PO PRN (15:20)
[2017-11-26] MEDS ORDERED: MAG HYDROX/AL HYDROX/SIMETH SUSP 30 ML UDCUP PO PRN (15:20)
[2017-11-26] MEDS ORDERED: ONDANSETRON HCL INJ/PF 4 MG/2 ML SDV IV PRN (15:20)
[2017-11-26 15:28] LABS: TROPONIN I 0.017 ng/mL
[2017-11-26] MEDS ORDERED: ALBUTEROL SULFATE 0.083% NEB 2.5 MG/3 ML AMPUL NEB PRN (15:29)
[2017-11-26] MEDS ORDERED: LORAZEPAM 0.5 MG TABLET PO PRN (15:32)
[2017-11-26] MEDS ORDERED: NITROGLYCERIN 0.4 MG/TAB 25 TAB/BOTTLE SL PRN (15:35)
--- NOTE | 2017-11-26 16:01 | EKG REPORT ---
SEVERITY:- ABNORMAL ECG - SINUS RHYTHM WITH APCs LVH WITH SECONDARY REPOLARIZATION ABNORMALITY ANTERIOR Q WAVES, POSSIBLY DUE TO LVH VS ASMI : Confirmed by: Olesya Escobar 26-Nov-2017 16:00:31
--- NOTE | 2017-11-26 16:24 | RADIOLOGY REPORT (SQ) ---
EXAM DESCRIPTION: CT HEAD WITHOUT COMPLETED DATE/TIME: 11/26/2017 4:12 pm REASON FOR STUDY: Vertigo, ataxia ? subacute posterior cva R07.89 OTHER CHEST PAIN R00.2 PALPITATI ONS R73.03 PREDIABETES COMPARISON: CT brain 03/24/2014 TECHNIQUE: Axial images acquired through the brain without intravenous contrast. Images reviewed wi th bone, brain and subdural windows. Additional sagittal and coronal reconstructions were generated. Images stored on PACS. All CT scanners at this facility use dose modulation, iterative reconstruction, and/or weight based d osing when appropriate to reduce radiation dose to as low as reasonably achievable (ALARA). [facility]: Dose Right [facility]: CareDose [facility]: Dose Right [facility]: Teradose 4D [facility]: [employer] RADIATION DOSE: CT Rad equipment meets quality standard of care and radiation dose reduction techniq ues were employed. CTDIvol: 53.2 mGy. DLP: 1017 mGy-cm. mGy. LIMITATIONS: None. FINDINGS: VENTRICLES: Normal size and contour. CEREBRUM: No CT evidence of acute large territory ischemic change, acute intracranial hemorrhage, mas s effect, or midline shift. Minimal spotty bifrontal and biparietal low attenuation in the deep hemis pheric white matter likely minimal age-appropriate small vessel ischemic change. This is stable comp ared to prior study. CEREBELLUM: No masses. No hemorrhage. No alteration of density. No evidence for acute infarction. EXTRAAXIAL SPACES: No fluid collections. No masses. ORBITS AND GLOBE: No intra- or extraconal masses. Bilateral cataract surgery. CALVARIUM: No fracture. PARANASAL SINUSES: No fluid or mucosal thickening. SOFT TISSUES: No mass or hematoma. OTHER: No other significant finding. IMPRESSION: No acute findings EVIDENCE OF ACUTE STROKE: NO. COMMENT: Quality ID # [id number]: Final reports with documentation of one or more dose reduction techniques (e.g., Automated exposure control, adjustment of the mA and/or kV according to patient size, use of iterative reconstruction technique) TECHNICAL DOCUMENTATION: JOB ID: [id number] [employer]- All Rights Reserved Reading location - IP/workstation name: [email or web address]
--- NOTE | 2017-11-26 16:28 | PDOC H&P ---
History of Present Illness Admission Date/PCP: 11/26/17 14:04 GROVER ROME MD Patient complains of: Chest pain, dyspnea on exertion, vertigo, ataxia History of Present Illness: PREET MEDRANO is a 72 year old female with a past medical history significant for CABG x 3, atrial fibrillation, chronically anticoagulated on Eliquis, prediabetes, LLE lymphadenopathy secondary to femoral graft site, hypertension, and anxiety who presents to the emergency department today with multiple complaints. The patient reports 4-5 months of progressively worsening dyspnea on exertion, intermittent chest pain that has become more constant over time, palpitations, fatigue, worsening LLE edema, dizziness, and ataxia. The patient is a poor historian and cannot recall the specifics of recent cardiac workup, but does indicate that she may have possibly had an echocardiogram, nuclear stress test, or cardiac cath (or any combination of) within the last 6 months at [facility]. Evaluation in the emergency department is unremarkable with a benign chest x-ray , normal laboratory evaluation, negative initial troponin, and EKG demonstrating atrial fibrillation. She is referred to the hospitalist service for admission and evaluation of the above stated complaints. Past Medical History Cardiac Medical History: Reports: Atrial Fibrillation, Coronary Artery Disease, Myocardial Infarction, Hyperlipidema, Hypertension Denies: DVT, Pulmonary Embolism Pulmonary Medical History: Reports: Sleep Apnea - CPAP pressure 15, room air Denies: Asthma, Chronic Obstructive Pulmonary Disease (COPD), Tuberculosis EENT Medical History: Reports: None Neurological Medical History: Reports: None Denies: Seizures Endocrine Medical History: Reports: Obesity Denies: Diabetes Mellitus Type 1, Diabetes Mellitus Type 2, Hyperthyroidism, Hypothyroidism Renal/ Medical History: Reports: None Malignancy Medical History: Reports: None GI Medical History: Reports: Gastroesophageal Reflux Disease Denies: Cirrhosis, Hepatitis Musculoskeltal Medical History: Reports: Arthritis, Gout Skin Medical History: Reports: None Psychiatric Medical History: Denies: Depression, General Anxiety Disorder, Tobacco Dependency Traumatic Medical History: Reports: None Hematology: Reports: None Infectious Medical History: Denies: Clostridium Difficile, Methicillin-Resistant Staph Aureus Past Surgical History Past Surgical History: Reports: Cardiac Catheterization - October 05, 2016, Dr. Elvis Field [facility]., Coronary Artery Bypass Graft - 2005, three-vessel, Hysterectomy Social History Information Source: Patient Lives with: Family Smoking Status: Former Smoker Number of Years Smokin Last Time Smoked: 20 years ago Frequency of Alcohol Use: None Hx Recreational Drug Use: No Drugs: None Hx Prescription Drug Abuse: No - Advance Directive Resuscitation Status: Full Code Surrogate healthcare decision maker:: The patient's [id number], Michelle Medrano, Family History Family History: Reviewed & Not Pertinent Parental Family History Reviewed: Yes Children Family History Reviewed: Yes Sibling(s) Family History Reviewed.: Yes Medication/Allergy Home Medications: Potassium Chloride [K-Tab ER] 20 meq PO DAILY 01/18/17 Apixaban [Eliquis 5 mg Tablet] 5 mg PO BID 11/26/17 Cyanocobalamin (Vitamin B-12) [Vitamin B12] 2,500 mcg PO DAILY 11/26/17 Furosemide [Lasix 20 mg Tablet] 20 mg PO QAMP PRN 11/26/17 Levalbuterol Tartrate [Xopenex Hfa] 2 puff IH BID 11/26/17 Losartan Potassium [Losartan Potassium] 50 mg PO DAILY 11/26/17 Meclizine HCl [Antivert 25 mg Tablet] 25 mg PO DAILYP PRN 11/26/17 Nifedipine [Nifedipine ER] 30 mg PO QAM 11/26/17 Blachly-3 Fatty Acids/Fish Oil [Fish Oil 1,000 mg Capsule] 1 each PO DAILY Rosuvastatin Calcium [Crestor 10 mg Tablet] 10 mg PO QHS 11/26/17 Sertraline HCl [Zoloft 50 mg Tablet] 50 mg PO QAM 11/26/17 Sotalol HCl [Sotalol] 40 mg PO BID 11/26/17 Allergies/Adverse Reactions: amlodipine besylate [From [facility]] Adverse Reaction (Unknown, Verified 11/26/17 11:20) cough Review of Systems Constitutional: PRESENT: fatigue, weakness. ABSENT: chills, fever(s), headache( s), weight gain, weight loss Eyes: ABSENT: visual disturbances Ears: ABSENT: hearing changes Nose, Mouth, and Throat: PRESENT: other - voice hoarseness Cardiovascular: PRESENT: chest pain, dyspnea on exertion, edema, orthropnea, palpitations Respiratory: PRESENT: dyspnea. ABSENT: cough, hemoptysis Gastrointestinal: ABSENT: abdominal pain, constipation, diarrhea, hematemesis, hematochezia, nausea, vomiting Genitourinary: ABSENT: dysuria, hematuria Musculoskeletal: ABSENT: joint swelling Integumentary: ABSENT: rash, wounds Neurological: PRESENT: abnormal gait, tremor(s), vertigo, weakness. ABSENT: abnormal speech, confusion, dizziness, focal weakness, syncope Psychiatric: ABSENT: anxiety, depression, homidical ideation, suicidal ideation Endocrine: ABSENT: cold intolerance, heat intolerance, polydipsia, polyuria Hematologic/Lymphatic: ABSENT: easy bleeding, easy bruising Physical Exam Vital Signs: Temp Pulse Resp BP Pulse Ox 98.6 F 53 L 16 163/75 H 98 11/26/17 11:35 11/26/17 11:35 11/26/17 15:01 11/26/17 15:01 11/26/17 15:01 General appearance: PRESENT: no acute distress, cooperative, obese, well- developed, well-nourished Head exam: PRESENT: atraumatic, normocephalic Eye exam: PRESENT: conjunctiva pink, EOMI, PERRLA. ABSENT: scleral icterus Ear exam: PRESENT: normal external ear exam Mouth exam: PRESENT: moist, tongue midline Neck exam: PRESENT: carotid bruit. ABSENT: JVD, lymphadenopathy, thyromegaly Respiratory exam: PRESENT: clear to auscultation shasha, symmetrical, unlabored. ABSENT: rales, rhonchi, wheezes Cardiovascular exam: PRESENT: bradycardia, irregular rhythm, +S1, +S2. ABSENT: diastolic murmur, rubs, systolic murmur Pulses: PRESENT: normal dorsalis pedis pul Vascular exam: PRESENT: normal capillary refill GI/Abdominal exam: PRESENT: normal bowel sounds, soft. ABSENT: distended, guarding, mass, organolmegaly, rebound, tenderness Rectal exam: PRESENT: deferred Extremities exam: PRESENT: full ROM. ABSENT: calf tenderness, clubbing, pedal edema Musculoskeletal exam: PRESENT: ambulatory Neurological exam: PRESENT: alert, awake, oriented to person, oriented to place , oriented to time, oriented to situation, CN II-XII grossly intact. ABSENT: motor sensory deficit Psychiatric exam: PRESENT: anxious, appropriate affect, normal mood. ABSENT: homicidal ideation, suicidal ideation Skin exam: PRESENT: dry, intact, warm. ABSENT: cyanosis, rash Results Laboratory Results: 11/26/17 14:48 Troponin I 0.017 NT-Pro-B Natriuret Pep 243 Impressions: Chest X-Ray 11/26/17 11:21 IMPRESSION: Cardiomegaly without CHF. Assessment & Plan - Diagnosis (1) Chest pain Qualifiers: Chest pain type: unspecified Qualified Code(s): R07.9 - Chest pain, unspecified Is this a current diagnosis for this admission?: Yes Plan: Patient complains of 3-4 months of progressively worsening chest pain and dyspnea on exertion. The chest pain is constant but worsened by ambulation. Chest pain is to left sternal border, nonradiating, and associated with dyspnea and palpitations. She is unable to identify alleviating symptoms. Most likely cause of chest pain is anxiety or musculoskeletal as the pain is occasionally reproducible with arm movement and palpation. However, given multiple risk factors, will initiate chest pain rule out. The patient has multiple risk factors including age, obesity, previous DE, CAD, CABG, hypertension. Chest x-ray demonstrated cardiomegaly without heart failure. EKG demonstrates atrial fibrillation; no ST segment elevation or depression. Initial troponin is negative. Pro BNP 243 The patient is admitted to the medical floor on continuous cardiac telemetry. We will obtain records from [facility] regarding echocardiogram, stress testing, cardiac cath. We will trend troponins. Obtain A1c and lipid panel with a.m. lab work. Will obtain Chest CT to rule out other possible causes for discomfort (pt is concerned regarding lung CA 2/2 tobacco history, dyspnea, pain, fatigue, etc.). Low suspicion for pulmonary emboli as the patient is chronically anticoagulated on Eliquis. (2) Dizziness Is this a current diagnosis for this admission?: Yes Plan: The patient reports onset of dizziness at same time as chest pain. Symptoms are constant and worsened by movements and resulting in ataxia. The patient reports a continuous feeling of falling forward into the left. Differential includes BPPV, anxiety, and posterior CVA. No focal deficits are noted at this time. We will check thyroid panel. Obtain CT of the head and Carotid Dopplers. A1c and lipid panel with a.m. labs Orthostatic blood pressures. Physical therapy evaluation. (3) Dyspnea on exertion Is this a current diagnosis for this admission?: Yes Plan: Unclear etiology; potential causes include COPD, CHF, deconditioning (age, weight), anxiety, less likely malignancy or pulmonary embolism. The patient is maintaining oxygen saturations on room air. Chest x-ray reveals cardiomegaly without heart failure. ProBNP is 243 The patient does endorse a recent history of wheezing and rescue inhaler use. She is uncertain with regard to diagnosis of COPD or asthma. We will obtain chest CT, PFTs. She will be provided supplemental oxygen as needed. CPAP nightly. As needed nebulizer treatments. (4) Fatigue Qualifiers: Fatigue type: unspecified Qualified Code(s): R53.83 - Other fatigue Is this a current diagnosis for this admission?: Yes Plan: Unclear etiology; again may be related to underlying cardiac or respiratory disease. The patient is noted to be bradycardic with heart rate in the 50s; fatigue may be directly related to heart rate or beta-andre therapy. May also be related to endocrine disorder (adrenal insufficiency, hypothyroidism). H&H are appropriate; low suspicion for B12 deficiency. We will obtain a.m. cortisol level. Remaining plan as above. (5) GERD (gastroesophageal reflux disease) Is this a current diagnosis for this admission?: Yes Plan: Pepcid (6) Hypertension Qualifiers: Hypertension type: essential hypertension Qualified Code(s): I10 - Essential (primary) hypertension Is this a current diagnosis for this admission?: Yes Plan: We will continue the patient's home medication regiment; losartan 50 mg twice daily, for the pain 30 mg daily, sotalol 80 mg daily. Consider reduction of sotalol for bradycardia and fatigue. (7) Coronary artery disease Qualifiers: Coronary Disease-Associated Artery/Lesion type: [place] artery [place] vs. transplanted heart: [place] heart Associated angina: without angina Qualified Code(s): I25.10 - Atherosclerotic heart disease of [place] coronary artery without angina pectoris Plan: Continue Eliquis, atorvastatin, omega-3, daily aspirin (8) Carotid bruit Qualifiers: Laterality: bilateral Qualified Code(s): R09.89 - Other specified symptoms and signs involving the circulatory and respiratory systems Is this a current diagnosis for this admission?: Yes Plan: Will obtain carotid doppler ultra sound. (9) JENN on CPAP Is this a current diagnosis for this admission?: Yes Plan: CPAP qHS. - Time Time Spent: Greater than 70 Minutes Medications reviewed and adjusted accordingly: Yes Anticipated discharge: Home Within: within 24 hours
--- NOTE | 2017-11-26 16:28 | RADIOLOGY REPORT (SQ) ---
EXAM DESCRIPTION: CT CHEST WITHOUT COMPLETED DATE/TIME: 11/26/2017 4:12 pm REASON FOR STUDY: chest pain, dyspnea on exertion R07.89 OTHER CHEST PAIN R00.2 PALPITATIONS R73.0 3 PREDIABETES COMPARISON: Chest films 11/26/2017, 01/17/2017, 07/30/2016 TECHNIQUE: CT scan performed of the chest without intravenous contrast. Images reviewed with lung, soft tissue and bone windows. Reconstructed coronal and sagittal MPR images reviewed. All images st ored on PACS. All CT scanners at this facility use dose modulation, iterative reconstruction, and/or weight based d osing when appropriate to reduce radiation dose to as low as reasonably achievable (ALARA). [facility]: Dose Right [facility]: CareDose [facility]: Dose Right [facility]: Teradose 4D [facility]: Game Face Hockey RADIATION DOSE: CT Rad equipment meets quality standard of care and radiation dose reduction techniq ues were employed. CTDIvol: 14.4 mGy. DLP: 549 mGy-cm. mGy. LIMITATIONS: No technical limitations. FINDINGS: LUNGS AND PLEURA: No masses, infiltrates, pneumothorax. No pleural effusions, calcificati ons. HILAR AND MEDIASTINAL STRUCTURES: No identified masses or abnormal nodes. No obvious aneurysm. HEART AND VASCULAR STRUCTURES: CABG. Marked cardiomegaly. No pericardial effusion. UPPER ABDOMEN: Small hiatal hernia. Stones in the gallbladder without gallbladder wall thickening or pericholecystic fluid. THYROID AND OTHER SOFT TISSUES: No masses. No adenopathy. BONES: No significant finding. HARDWARE: None in the chest. OTHER: No other significant findings. IMPRESSION: Cardiomegaly and old sternotomy with CABG. No acute infiltrates. No pleural effusion. No pericardial effusion. TECHNICAL DOCUMENTATION: JOB ID: [id number] Quality ID # [id number]: Final reports with documentation of one or more dose reduction techniques (e.g., Au tomated exposure control, adjustment of the mA and/or kV according to patient size, use of iterative reconstruction technique) 2010 [employer]- All Rights Reserved Reading location - IP/workstation name: [email or web address]
--- NOTE | 2017-11-26 17:32 | RADIOLOGY REPORT (SQ) ---
EXAM DESCRIPTION: CAROTID DOPPLER COMPLETED DATE/TIME: 11/26/2017 5:10 pm REASON FOR STUDY: carotid bruit; TIA/CVA symptoms R07.89 OTHER CHEST PAIN R00.2 PALPITATIONS R73.0 3 PREDIABETES COMPARISON: None. TECHNIQUE: Grayscale ultrasound, Doppler velocity and spectra, and color Doppler images acquired of the extra-cranial carotid and vertebral arteries. Images stored on PACS. LIMITATIONS: None. FINDINGS: RIGHT CAROTID CCA Velocities: Within normal limits. ICA Velocities Peak systolic 1.58 m/s. End diastolic 0.46 m/s. Proximal ICA/CCA peak systolic ratio 2.57. Scattered plaque. LEFT CAROTID CCA Velocities: Within normal limits. ICA Velocities Peak systolic 1.19 m/s. End diastolic 0.48 m/s. Proximal ICA/CCA peak systolic ratio 2.07. Scattered plaque VERTEBRAL ARTERIES: Antegrade flow. Normal waveforms. SUBCLAVIAN ARTERIES: No finding. OTHER: No other significant finding. IMPRESSION: SCATTERED PLAQUE. 50- 69% STENOSIS OF THE RIGHT INTERNAL CAROTID ARTERY. BORDERLINE 50 - 69% STENOSIS OF THE LEFT INTERNAL CAROTID ARTERY. COMMENT: Quality ID #[id number]: Velocity criteria are extrapolated from the diameter data as defined by t he Society of Radiologists in Ultrasound Consensus Conference. Radiology 2003: 229; 340-346. TECHNICAL DOCUMENTATION: JOB ID: [id number] [employer]- All Rights Reserved Reading location - IP/workstation name: [email or web address]
[2017-11-26] MEDS: APIXABAN 5 MG TABLET PO SCH (18:17)
[2017-11-26] MEDS ORDERED: HEPARIN SOD (PORCINE) 5,000 UNIT/ML 1 ML SYRINGE SUBCUT SCH (22:00)
[2017-11-26] MEDS ORDERED: ATORVASTATIN CALCIUM 20 MG TABLET PO SCH (22:00)
[2017-11-26] MEDS: FAMOTIDINE 20 MG TABLET PO SCH (22:11)
[2017-11-26] MEDS: LOSARTAN POTASSIUM 50 MG TABLET PO SCH (22:11)
[2017-11-27] MEDS ORDERED: HYDRALAZINE HCL INJ/PF 20 MG/1 ML SDV IV PRN (03:10)
[2017-11-27 07:44] LABS: HEMATOCRIT 33.5 % (36.0-47.0); HEMOGLOBIN 11.4 g/dL (12.0-15.5); MEAN CORPUSCULAR HEMOGLOBIN 31.3 pg (27.0-33.4); MEAN CORPUSCULAR HGB CONC 34.1 g/dL (32.0-36.0); MEAN CORPUSCULAR VOLUME 92 fl (80-97); PLATELET COUNT 176 10^3/uL (150-450); RED BLOOD COUNT 3.65 10^6/uL (3.72-5.28); RED CELL DISTRIBUTION WIDTH 14.7 % (11.5-14.0); WHITE BLOOD COUNT 5.2 10^3/uL (4.0-10.5)
[2017-11-27 07:59] LABS: ANION GAP 9 (5-19); BLOOD UREA NITROGEN 14 mg/dL (7-20); CALCIUM 9.5 mg/dL (8.4-10.2); CARBON DIOXIDE 26 mmol/L (22-30); CHLORIDE 110 mmol/L (98-107); CHOLESTEROL 243.52 mg/dL (0-200); GLUCOSE 92 mg/dL (75-110); TRIGLYCERIDES 80 mg/dL (<150)
[2017-11-27] MEDS: SERTRALINE HCL 50 MG TABLET PO SCH (07:59)
[2017-11-27] MEDS ORDERED: NIFEDIPINE 30 MG TAB.ER.24 PO SCH ×2 (08:00→10:00)
[2017-11-27] MEDS ORDERED: SOTALOL HCL 80 MG TABLET PO SCH (08:00)
[2017-11-27] MEDS: HYDRALAZINE HCL INJ/PF 20 MG/1 ML SDV IV PRN ×2 (08:17→14:20)
[2017-11-27 08:20] LABS: DIRECT LDL 152 mg/dL (<100)
[2017-11-27] MEDS: HYDROCHLOROTHIAZIDE 12.5 MG CAPSULE PO SCH (08:20)
[2017-11-27 08:24] LABS: FREE T4 (FREE THYROXINE) 0.83 ng/dL (0.78-2.19)
[2017-11-27 08:38] LABS: THYROID STIMULATING HORMONE 2.79 uIU/mL (0.47-4.68)
[2017-11-27] MEDS ORDERED: ATORVASTATIN CALCIUM 20 MG TABLET PO SCH (08:50)
[2017-11-27] MEDS ORDERED: COSYNTROPIN INJ 0.25 MG VIAL IV ONE (10:00)
[2017-11-27] MEDS ORDERED: (PENDING PHARMACY ID) (Cyanocobalamin (Vitamin B-12) [Vitamin B12] 2,500 MCG) PO SCH (10:00)
[2017-11-27] MEDS ORDERED: (PENDING PHARMACY ID) (Omega-3 Fatty Acids/Fish Oil [Fish Oil 1,000 Mg Capsule] 1 EACH) PO SCH (10:00)
[2017-11-27] MEDS ORDERED: METOPROLOL TARTRATE 25 MG TABLET PO SCH (10:00)
[2017-11-27] MEDS ORDERED: METOPROLOL TARTRATE 50 MG TABLET PO SCH (10:00)
[2017-11-27] MEDS: CYANOCOBALAMIN (VITAMIN B-12) 1,000 MCG TABLET PO SCH (10:57)
[2017-11-27] MEDS: LOSARTAN POTASSIUM 50 MG TABLET PO SCH ×2 (10:57→22:12)
[2017-11-27] MEDS: OMEGA-3 ACID ETHYL ESTERS 1 GM CAPSULE PO SCH (10:57)
[2017-11-27] MEDS: FAMOTIDINE 20 MG TABLET PO SCH ×2 (10:58→22:12)
[2017-11-27] MEDS: POTASSIUM CHLORIDE 10 MEQ CAPSULE.ER PO SCH (10:58)
[2017-11-27] MEDS: ASPIRIN 81 MG TABLET, CHEWABLE PO SCH (10:58)
[2017-11-27] MEDS: METOPROLOL TARTRATE 25 MG TABLET PO SCH (10:59)
[2017-11-27] MEDS: APIXABAN 5 MG TABLET PO SCH ×2 (10:59→18:09)
--- NOTE | 2017-11-27 14:06 | RADIOLOGY REPORT (SQ) ---
EXAM DESCRIPTION: MRA HEAD WITHOUT; MRI HEAD WITHOUT COMPLETED DATE/TIME: 11/27/2017 1:28 pm REASON FOR STUDY: Vertigo, ataxia. ? subacute posterior CVA. R07.89 OTHER CHEST PAIN R00.2 PALPITA TIONS R73.03 PREDIABETES COMPARISON: CT brain 11/26/2017. TECHNIQUE: Multiplanar imaging includes non-contrasted T1, T2, FLAIR, and diffusion with ADC map seq uences. Images stored on PACS. LIMITATIONS: Mild motion artifact on the MRA images. FINDINGS: ANATOMY: Empty sella. Midline structures otherwise intact. CSF SPACES: Generally age-appropriate without evidence of mass or hemorrhage. CEREBRUM: Patchy bilateral deep periventricular white matter foci, small vessel disease. No parenchy mal hemorrhage, mass or shift evident. POSTERIOR FOSSA: No signal alteration. No hemorrhage. No edema, masses or mass effect. Internal sonia tory canals, cerebello-pontine angles, mastoids normal. DIFFUSION IMAGING: Negative for acute or sub-acute infarction. ORBITS: No masses. Globes normal. PARANASAL SINUSES: No fluid levels. Mucosa normal. OTHER: No other significant finding. MRA head SOURCE IMAGES: No unexpected findings on source images. No large masses. 3-D MIP: No aneurysm. No occlusions. No significant stenosis of the cerebral arteries. OTHER: No other significant finding. IMPRESSION: 1. No acute intracranial abnormality. No recent CVA. Small vessel disease, chronic isabel nge suggested. 2. Normal [place]. EVIDENCE OF ACUTE STROKE: NO. TECHNICAL DOCUMENTATION: JOB ID: [id number] [employer]- All Rights Reserved Reading location - IP/workstation name: [email or web address]
--- NOTE | 2017-11-27 14:06 | RADIOLOGY REPORT (SQ) ---
EXAM DESCRIPTION: MRA HEAD WITHOUT; MRI HEAD WITHOUT COMPLETED DATE/TIME: 11/27/2017 1:28 pm REASON FOR STUDY: Vertigo, ataxia. ? subacute posterior CVA. R07.89 OTHER CHEST PAIN R00.2 PALPITA TIONS R73.03 PREDIABETES COMPARISON: CT brain 11/26/2017. TECHNIQUE: Multiplanar imaging includes non-contrasted T1, T2, FLAIR, and diffusion with ADC map seq uences. Images stored on PACS. LIMITATIONS: Mild motion artifact on the MRA images. FINDINGS: ANATOMY: Empty sella. Midline structures otherwise intact. CSF SPACES: Generally age-appropriate without evidence of mass or hemorrhage. CEREBRUM: Patchy bilateral deep periventricular white matter foci, small vessel disease. No parenchy mal hemorrhage, mass or shift evident. POSTERIOR FOSSA: No signal alteration. No hemorrhage. No edema, masses or mass effect. Internal sonia tory canals, cerebello-pontine angles, mastoids normal. DIFFUSION IMAGING: Negative for acute or sub-acute infarction. ORBITS: No masses. Globes normal. PARANASAL SINUSES: No fluid levels. Mucosa normal. OTHER: No other significant finding. MRA head SOURCE IMAGES: No unexpected findings on source images. No large masses. 3-D MIP: No aneurysm. No occlusions. No significant stenosis of the cerebral arteries. OTHER: No other significant finding. IMPRESSION: 1. No acute intracranial abnormality. No recent CVA. Small vessel disease, chronic isabel nge suggested. 2. Normal [place]. EVIDENCE OF ACUTE STROKE: NO. TECHNICAL DOCUMENTATION: JOB ID: [id number] [employer]- All Rights Reserved Reading location - IP/workstation name: [email or web address]
--- NOTE | 2017-11-27 16:53 | PDOC PROGRESS REPORT ---
Subjective Progress Note for:: 11/27/17 Subjective:: PREET MEDRANO is a 72 year old female with a past medical history significant for CABG x 3, atrial fibrillation, chronically anticoagulated on Eliquis, prediabetes, LLE lymphadenopathy secondary to femoral graft site, hypertension, and anxiety who was admitted on 11/26/17 with multiple vague complaints of fatigue, vertigo, ataxia, dyspnea on exertion concerning for possible subacute posterior CVA versus medication interaction versus adrenal insufficiency. Patient is seen on morning rounds. She found resting in bed comfortably with her friend present. She reports that she is tired today because she had difficulty sleeping in the hospital but otherwise is feeling well today. She was up ambulatory in the hallways with physical therapy this morning. Physical therapy states they did not note any deficits. The patient's laboratory and imaging results were reviewed thus far. All questions were answered in detail. The patient denies current headaches, dizziness, chest pain, palpitations, dyspnea, orthopnea, abdominal pain, nausea vomiting and diarrhea. Reason For Visit: CHEST PAIN,DYSPNEA ON EXERTION,ATAXIA Physical Exam Vital Signs: Temp Pulse Resp BP Pulse Ox 98.2 F 63 19 141/59 H 97 11/27/17 15:01 11/27/17 15:01 11/27/17 15:01 11/27/17 15:01 11/27/17 15:01 Intake & Output 11/26/17 11/27/17 11/28/17 06:59 06:59 06:59 Intake Total 335 Balance 335 Weight 86 kg General appearance: PRESENT: no acute distress, cooperative, obese, well- developed, well-nourished Head exam: PRESENT: atraumatic, normocephalic Eye exam: PRESENT: conjunctiva pink, EOMI, PERRLA. ABSENT: nystagmus, scleral icterus Ear exam: PRESENT: normal external ear exam Mouth exam: PRESENT: moist, tongue midline Neck exam: ABSENT: carotid bruit, JVD, lymphadenopathy, thyromegaly Respiratory exam: PRESENT: clear to auscultation shasha, symmetrical, unlabored. ABSENT: rales, rhonchi, wheezes Cardiovascular exam: PRESENT: bradycardia, irregular rhythm. ABSENT: diastolic murmur, rubs, systolic murmur Pulses: PRESENT: normal dorsalis pedis pul Vascular exam: PRESENT: normal capillary refill GI/Abdominal exam: PRESENT: normal bowel sounds, soft. ABSENT: distended, guarding, mass, organolmegaly, rebound, tenderness Rectal exam: PRESENT: deferred Extremities exam: PRESENT: full ROM. ABSENT: calf tenderness, clubbing, pedal edema Neurological exam: PRESENT: alert, awake, oriented to person, oriented to place , oriented to time, oriented to situation, CN II-XII grossly intact. ABSENT: motor sensory deficit Psychiatric exam: PRESENT: appropriate affect, normal mood. ABSENT: homicidal ideation, suicidal ideation Skin exam: PRESENT: dry, intact, warm. ABSENT: cyanosis, rash Results Laboratory Results: 11/27/17 06:04 11/27/17 06:04 11/27/17 11/27/17 11/27/17 06:04 06:04 06:04 WBC 5.2 RBC 3.65 L Hgb 11.4 L Hct 33.5 L MCV 92 MCH 31.3 MCHC 34.1 RDW 14.7 H Plt Count 176 Sodium 145.0 Potassium 4.0 Chloride 110 H Carbon Dioxide 26 Anion Gap 9 BUN 14 Creatinine 0.66 Est GFR ( Amer) > 60 Est GFR (Non-Af Amer) > 60 Glucose 92 Calcium 9.5 Triglycerides 80 Cholesterol 243.52 H LDL Cholesterol Direct 152 H VLDL Cholesterol 16.0 HDL Cholesterol 67 TSH 2.79 Free T4 0.83 11/26/17 11/26/17 11/27/17 14:48 20:40 02:50 Troponin I 0.017 0.014 0.018 NT-Pro-B Natriuret Pep 243 Impressions: Carotid Doppler Study 11/26/17 00:00 IMPRESSION: SCATTERED [place]. 50- 69% STENOSIS OF THE RIGHT INTERNAL CAROTID ARTERY. BORDERLINE 50- 69% STENOSIS OF THE LEFT INTERNAL CAROTID ARTERY. Chest CT 11/26/17 00:00 IMPRESSION: Cardiomegaly and old sternotomy with CABG. No acute infiltrates. No pleural effusion. No pericardial effusion. Head CT 11/26/17 00:00 IMPRESSION: No acute findings EVIDENCE OF ACUTE STROKE: NO. Chest X-Ray 11/26/17 11:21 IMPRESSION: Cardiomegaly without CHF. Brain MRI with MRA 11/27/17 00:00 IMPRESSION: 1. No acute intracranial abnormality. No recent CVA. Small vessel disease, chronic change suggested. 2. Normal [place]. EVIDENCE OF ACUTE STROKE: NO. Head MRI 11/27/17 00:00 IMPRESSION: 1. No acute intracranial abnormality. No recent CVA. Small vessel disease, chronic change suggested. 2. Normal [place]. EVIDENCE OF ACUTE STROKE: NO. Assessment & Plan - Diagnosis (1) Chest pain Qualifiers: Chest pain type: unspecified Qualified Code(s): R07.9 - Chest pain, unspecified Is this a current diagnosis for this admission?: Yes Plan: Patient complains of 3-4 months of progressively worsening chest pain and dyspnea on exertion. The chest pain is constant but worsened by ambulation. Chest pain is to left sternal border, nonradiating, and associated with dyspnea and palpitations. She is unable to identify alleviating symptoms. Most likely cause of chest pain is anxiety or musculoskeletal as the pain is occasionally reproducible with arm movement and palpation. However, given multiple risk factors, will initiate chest pain rule out. The patient has multiple risk factors including age, obesity, previous DE, CAD, CABG, hypertension. Chest x-ray demonstrated cardiomegaly without heart failure. EKG demonstrates atrial fibrillation; no ST segment elevation or depression. Troponins negative x4 Pro BNP 243 Received cardiac cath (10/21) report from [facility]; normal study. The cath report referenced echocardiogram completed at same time with normal ejection fraction. The patient reports that she recently had a stress test and echocardiogram done and [place]. She states her assistant professor of dietetics (Dr. Dietz) did not recommend further work up; no indication to repeat testing here. A1c 6.2% Lipid panel slightly elevated; HDL 67, LDL 152, Trig 80, TChol [address] demonstrates cardiomegaly and no acute findings, nodules or lesions. It does reveal small hiatal hernia (perhaps the source of the patient's intermittent positional sharp chest pain) and gallstones without wall thickening or cholecystitis. The patient is admitted to the medical floor on continuous cardiac telemetry. Low suspicion for pulmonary emboli as the patient is chronically anticoagulated on Eliquis. Atypical chest pain of unclear causes; unlikely to be cardiac related given negative troponins, stable EKG, recent clean cardiac catheterization. CT did demonstrate a small hiatal hernia which may be the source of her pain versus esophagitis/esophageal spasm versus musculoskeletal pain. Patient counseled and reassured. (2) Dizziness Is this a current diagnosis for this admission?: Yes Plan: The patient reports onset of dizziness at same time as chest pain. Symptoms are constant and worsened by movements and resulting in ataxia. The patient reports a continuous feeling of falling forward into the left. Differential includes BPPV, anxiety, and posterior CVA. No focal deficits are noted at this time. Thyroid panel is normal. CT of the head demonstrates chronic microvascular changes; no evidence of acute CVA. Follow-up Brain MRI/MRA again demonstrates microvascular changes, no evidence of acute or subacute stroke, and normal [place]. Carotid Dopplers revealed scattered plaque with 50-69% stenosis of bilateral internal carotid arteries. Orthostatic blood pressures are negative. A.m. cortisol level is reduced. Dizziness may be related to BPPV (but patient says she has been previously diagnosed with), anxiety, medication side effect (BB therapy), adrenal insufficiency. The patient is reassured that although the exact cause of her dizziness has not been identified, numerous medical conditions have been ruled out. Patient may benefit from outpatient referral to physical therapy clinic that specializes in balance. (3) Dyspnea on exertion Is this a current diagnosis for this admission?: Yes Plan: Unclear etiology; potential causes include COPD, CHF, deconditioning (age, weight), anxiety, less likely malignancy or pulmonary embolism. The patient is maintaining oxygen saturations on room air. Chest x-ray reveals cardiomegaly without heart failure. Chest CT is reassuring. ProBNP is 243 The patient does endorse a recent history of wheezing and rescue inhaler use. She is uncertain with regard to diagnosis of COPD or asthma. Of note, the patient was on sotalol which is a noncardiac selective beta-andre which may be contributing to her dyspnea and wheezing. She will be provided supplemental oxygen as needed. As needed nebulizer treatments. Sotalol is discontinued and patient is initiated on metoprolol. (4) Fatigue Qualifiers: Fatigue type: unspecified Qualified Code(s): R53.83 - Other fatigue Is this a current diagnosis for this admission?: Yes Plan: Unclear etiology; though likely secondary to new diagnosis of adrenal insufficiency. May also be related to underlying cardiac or respiratory disease , and medication side effect. The patient is noted to be bradycardic with heart rate in the 50s; fatigue may be directly related to heart rate or beta- andre therapy. H&H are appropriate; low suspicion for B12 deficiency. AM cortisol is low (1.03) ACTH stimulation testing also relatively low (15.20) Thyroid panel is normal. Patient will be placed on chronic steroids for adrenal insufficiency. Patient's beta-andre medication changed; sotalol is discontinued. Metoprolol was initiated at a slightly lower dose to hopefully allow for slightly increased heart rate (currently in the low to mid 50s; ideally, heart rate would be in the mid 60s-70s). (5) GERD (gastroesophageal reflux disease) Is this a current diagnosis for this admission?: Yes Plan: Pepcid (6) Hypertension Qualifiers: Hypertension type: essential hypertension Qualified Code(s): I10 - Essential (primary) hypertension Is this a current diagnosis for this admission?: Yes Plan: Blood pressures this am elevated to 186/88 and 177/106. The patient's home medications losartan 50 mg p.o. twice daily and Procardia 30 mg daily is continued. Sotalol is discontinued secondary to potential for inducing asthma symptoms and bradycardia. Metoprolol is started at 75 mg daily (sotalol 80mg is approximately equivalent to 100mg of metoprolol); hopefully the slightly decreased beta-blockade will allow for improved heart rate while still providing antihypertensive effect. Initiate Hydrochlorathiazide 12.5 p.o. daily. Blood pressure this afternoon, after change to metoprolol, is improved: 141/59. Although it is early to tell whether or not she will continue to have hypertensive episodes. We will continue to monitor. If she continues to require dose adjustments may consider increasing Procardia versus HCTZ. May also need to consider renal ultrasound. (7) Coronary artery disease Qualifiers: Coronary Disease-Associated Artery/Lesion type: [place] artery [place] vs. transplanted heart: [place] heart Associated angina: without angina Qualified Code(s): I25.10 - Atherosclerotic heart disease of [place] coronary artery without angina pectoris Is this a current diagnosis for this admission?: Yes Plan: Continue Eliquis, atorvastatin, omega-3, daily aspirin (8) Carotid bruit Qualifiers: Laterality: bilateral Qualified Code(s): R09.89 - Other specified symptoms and signs involving the circulatory and respiratory systems Is this a current diagnosis for this admission?: Yes Plan: Carotid Dopplers revealed scattered plaque with 50-69% stenosis of bilateral internal carotid arteries. Discussed that the strong bruits may be part of the discomfort she is feeling when anxious. S he reports neck preparations, difficulty swallowing, and odd sensation radiating from neck to chest. Recommend outpatient follow-up with endovascular surgeon to evaluate for need for carotid endarterectomy. Continue statin, aspirin, and Eliquis. (9) JENN on CPAP Is this a current diagnosis for this admission?: Yes Plan: CPAP qHS. (10) Adrenal insufficiency Is this a current diagnosis for this admission?: Yes Plan: AM cortisol is low (1.03) ACTH stimulation testing also relatively low (15.20) She is placed on hydrocortisone 10 mg every morning and 5 mg each afternoon. At discharge will write prescription to allow for a 2.5 mg dose in the evening as well. (11) Hypertensive urgency Is this a current diagnosis for this admission?: Yes Plan: She was admitted with elevated blood pressures as high as 218/98; appears to average 180s/60s. Hypertension may be contributing to her anxiety, chest pain, dyspnea, and general sense of unease. Medication adjustments as above. Consider possible medication non-compliance; may benefit from home health nursing for disease and medication education and management. Consider need for renal ultrasound. - Time Time Spent with patient: 35 or more minutes Medications reviewed and adjusted accordingly: Yes Anticipated discharge: Home Within: within 24 hours - Once BP is controlled
[2017-11-27] MEDS ORDERED: ATORVASTATIN CALCIUM 40 MG TABLET PO SCH (22:00)
[2017-11-28] MEDS: HYDRALAZINE HCL INJ/PF 20 MG/1 ML SDV IV PRN ×2 (00:16→06:37)
[2017-11-28] MEDS ORDERED: HYDROCORTISONE 10 MG TABLET PO SCH ×2 (08:00→14:00)
[2017-11-28] MEDS: HYDROCHLOROTHIAZIDE 12.5 MG CAPSULE PO SCH (08:53)
[2017-11-28] MEDS: SERTRALINE HCL 50 MG TABLET PO SCH (08:54)
[2017-11-28] MEDS ORDERED: NIFEDIPINE 30 MG TAB.ER.24 PO SCH (10:00)
[2017-11-28] MEDS: APIXABAN 5 MG TABLET PO SCH (10:13)
[2017-11-28] MEDS: ASPIRIN 81 MG TABLET, CHEWABLE PO SCH (10:13)
[2017-11-28] MEDS: OMEGA-3 ACID ETHYL ESTERS 1 GM CAPSULE PO SCH (10:13)
[2017-11-28] MEDS: CYANOCOBALAMIN (VITAMIN B-12) 1,000 MCG TABLET PO SCH (10:13)
[2017-11-28] MEDS: POTASSIUM CHLORIDE 10 MEQ CAPSULE.ER PO SCH (10:15)
[2017-11-28] MEDS: LOSARTAN POTASSIUM 50 MG TABLET PO SCH (10:15)
[2017-11-28] MEDS: FAMOTIDINE 20 MG TABLET PO SCH (10:16)
[2017-11-28] MEDS: METOPROLOL TARTRATE 25 MG TABLET PO SCH (10:16)
[2017-11-28 12:43] VITALS: BP 154/60
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
--- NOTE | 2017-11-29 14:22 | Pulmonary Function Test ---
Pulmonary Function Test Date of Procedure:: 11/29/17 INDICATION:: Dyspnea Referring Provider: Dr. Moreno Taylor Iron Caster: Shannon Abdullahi PLATEN GRINDER - Report Spirometry: FVC 1.76 L 68% postbronchodilator 1.65 L 63% FEV1 1.55 L 75% postbronchodilator 1.48 L 71% FEV1/FVC % 68 postbronchodilator 90 predicted 87 FEF 25-75% 3.24 L 149% postbronchodilator 1.84 L 85% Impression: Mild obstructive ventilatory defect with insignificant response to bronchodilator therapy. This in and of itself does not preclude a clinical trial of bronchodilator therapy. Restrictive defect is inferred by spirometry. Restrictive defect cannot be diagnosed on the basis of spirometry alone. Restrictive defect may mask the degree of obstruction.
== END 2017-11-28 14:26 | disposition home or self-care (01) | DRG 313 ==
LOC: ER 11:15 → EH 14:04 → 5 15:31 → OBSVTOIN 11-27 16:53
PROVIDERS: ADMIT Family Medicine; ATTEND Family Medicine
DX: R07.89 Other chest pain (principal); E27.40 Unspecified adrenocortical insufficiency; I16.0 Hypertensive urgency; I48.91 Unspecified atrial fibrillation; I25.10 Atherosclerotic heart disease of native coronary artery without angina pectoris; E78.00 Pure hypercholesterolemia, unspecified; I10 Essential (primary) hypertension; K21.9 Gastro-esophageal reflux disease without esophagitis; I65.23 Occlusion and stenosis of bilateral carotid arteries; R42 Dizziness and giddiness; G47.33 Obstructive sleep apnea (adult) (pediatric); I25.2 Old myocardial infarction; Z79.01 Long term (current) use of anticoagulants; Z95.1 Presence of aortocoronary bypass graft
CPT/HCPCS: 36415; 70450; 70544; 70551; 71045; 71250; 80048; 80053; 80061; 82533; 82550; 82553; 83036; 83735; 83880; 84439; 84443; 84484; 85025; 85027; 85379; 93005; 93010; 93880; 94060; 99285; G0378; G8978-GP; G8979-GP; J0360; J0834; J3490

== ENCOUNTER 2018-02-21 09:42 | Emergency (ER) | payer MEDICARE, MEDICAID ==
[2018-02-21 10:01] VITALS: BP 163/110
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
== END 2018-02-21 12:03 | disposition home or self-care (01) ==
LOC: ER 09:42
DX: T63.461A Toxic effect of venom of wasps, accidental (unintentional), initial encounter (principal)
CPT/HCPCS: 99282

== ENCOUNTER 2018-06-10 12:37 | Emergency (ER) | payer MEDICARE, MEDICAID ==
--- NOTE | 2018-06-10 14:23 | ER Document Report ---
ED Medical Screen (RME) - General Chief Complaint: Nausea/Vomiting/Diarrhea Stated Complaint: COLD/DIARRHEA Time Seen by Provider: 06/10/18 14:12 Mode of Arrival: Wheelchair Information source: Patient Notes: 72-year-old female presented to ED for nausea vomiting diarrhea with backaches congestion chest tightness and shortness of breath. She states she is also had intermittent fevers and weakness. She is alert oriented respirations regular and unlabored clear to auscultation speaking in full sentences and walks with a unsteady gait. She does have an extensive cardiac history. She states she is vomited at least 3 or 4 times and multiple diarrhea stools every time she coughs. Patient states she is also had cold and hot flashes and when she gets a cold or hot flashes it causes her to vomit. I have greeted and performed a rapid initial assessment of this patient. A comprehensive ED assessment and evaluation of the patient, analysis of test results and completion of medical decision making process will be conducted by an additional ED providers. TRAVEL OUTSIDE OF THE [place] IN LAST 30 DAYS: No - Related Data Allergies/Adverse Reactions: amlodipine besylate [From [address]] Adverse Reaction (Unknown, Verified 06/10/18 13:09) cough Past Medical History - Past Medical History Cardiac Medical History: Reports: Hx Atrial Fibrillation, Hx Coronary Artery Disease, Hx Heart Attack, Hx Hypercholesterolemia, Hx Hypertension Denies: Hx DVT, Hx Pulmonary Embolism Pulmonary Medical History: Reports: Hx Sleep Apnea - CPAP pressure 15, room air Denies: Hx Asthma, Hx COPD, Hx Tuberculosis Neurological Medical History: Denies: Hx Seizures Endocrine Medical History: Denies: Hx Diabetes Mellitus Type 1, Hx Diabetes Mellitus Type 2, Hx Hyperthyroidism, Hx Hypothyroidism Renal/ Medical History: Denies: Hx Peritoneal Dialysis GI Medical History: Reports: Hx Gastroesophageal Reflux Disease. Denies: Hx Cirrhosis, Hx Hepatitis Musculoskeltal Medical History: Reports Hx Arthritis, Reports Hx Gout Psychiatric Medical History: Denies: Hx Depression Infectious Medical History: Denies: Hx C-Diff, Hx Hepatitis, Hx MRSA Past Surgical History: Reports: Hx Cardiac Catheterization - October 05, 2016, Dr. Elvis Lindquist., Hx Cardiac Surgery - CABGx3, Hx Coronary Artery Bypass Graft - 2006, three-vessel, Hx Coronary Stent, Hx Hysterectomy - Immunizations Hx Diphtheria, Pertussis, Tetanus Vaccination: No History of Influenza Vaccine for 03/2017 - 08/2017 Season: No Physical Exam - Vital signs Vitals: Temp Pulse Resp BP Pulse Ox 99.6 F 76 24 H 159/88 H 97 06/10/18 13:21 06/10/18 13:21 06/10/18 13:21 06/10/18 13:21 06/10/18 13:21 Course - Vital Signs Vital signs: Temp Pulse Resp BP Pulse Ox 99.6 F 76 24 H 159/88 H 97 06/10/18 13:21 06/10/18 13:21 06/10/18 13:21 06/10/18 13:21 06/10/18 13:21 Doctor's Discharge - Discharge Referrals: GROVER ROME MD [Primary Care Provider] - Follow up as needed
[2018-06-10 15:02] LABS: ABSOLUTE LYMPHOCYTES (AUTO) 0.7 10^3/uL (0.5-4.7); ABSOLUTE MONOCYTES (AUTO) 0.9 10^3/uL (0.1-1.4); ABSOLUTE NEUT (AUTO) 2.8 10^3/uL (1.7-8.2); HEMOGLOBIN 12.5 g/dL (12.0-15.5); TOTAL CELLS COUNTED % (AUTO) 100 %; WHITE BLOOD COUNT 4.5 10^3/uL (4.0-10.5)
[2018-06-10 15:22] LABS: BASOPHILS % (AUTO) 0.9 % (0-2); EOSINOPHILS % (AUTO) 0.5 % (0-6); HEMATOCRIT 36.2 % (36.0-47.0); LYMPHOCYTES % (AUTO) 16.1 % (13-45); MEAN CORPUSCULAR HEMOGLOBIN 31.9 pg (27.0-33.4); MEAN CORPUSCULAR HGB CONC 34.5 g/dL (32.0-36.0); MEAN CORPUSCULAR VOLUME 93 fl (80-97); MONOCYTES % (AUTO) 19.3 % (3-13); PLATELET COUNT 186 10^3/uL (150-450); RED BLOOD COUNT 3.91 10^6/uL (3.72-5.28); RED CELL DISTRIBUTION WIDTH 14.5 % (11.5-14.0); SEGMENTED NEUTROPHILS % (AUTO) 63.2 % (42-78)
[2018-06-10 15:39] LABS: ALANINE AMINOTRANSFERASE 18 U/L (9-52); ALBUMIN 4.3 g/dL (3.5-5.0); ALKALINE PHOSPHATASE 77 U/L (38-126); ANION GAP 11 (5-19); ASPARTATE AMINO TRANSFERASE 33 U/L (14-36); BILIRUBIN,DIRECT 0.3 mg/dL (0.0-0.4); BILIRUBIN,TOTAL 0.4 mg/dL (0.2-1.3); BLOOD UREA NITROGEN 22 mg/dL (7-20); CARBON DIOXIDE 26 mmol/L (22-30); CHLORIDE 105 mmol/L (98-107); CREATINE KINASE 105 U/L (30-135); GLUCOSE 141 mg/dL (75-110); LIPASE 100.5 U/L (23-300); POTASSIUM 3.6 mmol/L (3.6-5.0); SODIUM 142.3 mmol/L (137-145); TOTAL PROTEIN 7.6 g/dL (6.3-8.2)
[2018-06-10 15:44] LABS: CREATINE KINASE MB 1.52 ng/mL (<4.55); TROPONIN I 0.029 ng/mL
--- NOTE | 2018-06-10 16:02 | RADIOLOGY REPORT (SQ) ---
EXAM DESCRIPTION: CHEST 2 VIEWS COMPLETED DATE/TIME: 06/10/2018 3:41 pm REASON FOR STUDY: cough congesiton chest tightness COMPARISON: 07/30/2016. EXAM PARAMETERS: NUMBER OF VIEWS: two views TECHNIQUE: Digital Frontal and Lateral radiographic views of the chest acquired. RADIATION DOSE: NA LIMITATIONS: none FINDINGS: LUNGS AND PLEURA: No acute infiltrates or effusions. . MEDIASTINUM AND HILAR STRUCTURES: No masses or contour abnormalities. HEART AND VASCULAR STRUCTURES: Borderline cardiomegaly with uncoiling thoracic aorta. Changes of CAB G. BONES: No acute findings. HARDWARE: None in the chest. OTHER: No other significant finding. IMPRESSION: Borderline cardiomegaly. Status post CABG. TECHNICAL DOCUMENTATION: JOB ID: [id number] 2010 [employer]- All Rights Reserved Reading location - IP/workstation name: [email or web address]
[2018-06-10] MEDS ORDERED: ONDANSETRON HCL INJ/PF 4 MG/2 ML SDV IV ONE (17:45)
[2018-06-10] MEDS ORDERED: LOPERAMIDE HCL 2 MG CAPSULE PO ONE (17:45)
[2018-06-10] MEDS ORDERED: NORMAL SALINE 500 ML IV ONE (17:46)
[2018-06-10] MEDS ORDERED: IPRATROPIUM/ALBUTEROL 0.5-2.5 MG/3 ML AMPUL NEB ONE (17:50)
--- NOTE | 2018-06-10 17:52 | ER Document Report ---
ED General - General Chief Complaint: Nausea/Vomiting/Diarrhea Stated Complaint: COLD/DIARRHEA Time Seen by Provider: 06/10/18 14:12 Mode of Arrival: Wheelchair Information source: Patient, Relative, [facility] Records Notes: 72-year-old female with congestive heart failure, coronary artery disease r equiring CABG, atrial fibrillation, hyperlipidemia, hypertension presents with complaint of nausea, vomiting, diarrhea, sore throat and chest congestion. Patient states that 2 days ago she began coughing and experiencing a sore throat. She describes the cough is intermittent, nonproductive. Patient states yesterday she began vomiting, having diarrhea and chills and sweats. Patient does have back pain but states that she is currently under care by orthopedic surgeon and had a recent MRI which showed degenerative disc disease. She states that this is not a new or worse problem. Patient has not received a flu shot. She denies chest pain, abdominal pain, dysuria, hematuria, leg weakness. Patient states that she has not been able to tolerate any food or fluid without vomiting. She states that she has had over 15 episodes of diarrhea. She denies sick contacts, recent antibiotic use, recent travel. TRAVEL OUTSIDE OF THE [place] IN LAST 30 DAYS: No - HPI Onset: Yesterday Onset/Duration: Gradual, Persistent Quality of pain: Achy Associated symptoms: Nonproductive cough, Diarrhea, Fever, Nausea, Vomiting, Shortness of breath - Only with coughing. denies: Chest pain Exacerbated by: Coughing Relieved by: Denies Similar symptoms previously: No - Related Data Allergies/Adverse Reactions: amlodipine besylate [From [facility]] Adverse Reaction (Unknown, Verified 06/10/18 13:09) cough Past Medical History - General Information source: Patient - Social History Smoking Status: Never Smoker Chew tobacco use (# tins/day): No Frequency of alcohol use: None Drug Abuse: None Lives with: Alone Family History: Reviewed & Not Pertinent Patient has suicidal ideation: No Patient has homicidal ideation: No - Past Medical History Cardiac Medical History: Reports: Hx Atrial Fibrillation, Hx Coronary Artery Disease, Hx Heart Attack, Hx Hypercholesterolemia, Hx Hypertension Denies: Hx DVT, Hx Pulmonary Embolism Pulmonary Medical History: Reports: Hx Sleep Apnea - CPAP pressure 15, room air Denies: Hx Asthma, Hx COPD, Hx Tuberculosis Neurological Medical History: Denies: Hx Seizures Endocrine Medical History: Denies: Hx Diabetes Mellitus Type 1, Hx Diabetes Mellitus Type 2, Hx Hyperthyroidism, Hx Hypothyroidism Renal/ Medical History: Denies: Hx Peritoneal Dialysis GI Medical History: Reports: Hx Gastroesophageal Reflux Disease. Denies: Hx Cirrhosis, Hx Hepatitis Musculoskeletal Medical History: Reports Hx Arthritis, Reports Hx Gout Psychiatric Medical History: Denies: Hx Depression Infectious Medical History: Denies: Hx C-Diff, Hx Hepatitis, Hx MRSA Past Surgical History: Reports: Hx Cardiac Catheterization - October 05, 2016, Dr. Elvis Field [facility] Hx Cardiac Surgery - CABGx3, Hx Coronary Artery Bypass Graft - 2005, three-vessel, Hx Coronary Stent, Hx Hysterectomy - Immunizations Hx Diphtheria, Pertussis, Tetanus Vaccination: No Review of Systems - Review of Systems Constitutional: Chills, Fever, Malaise EENT: denies: Blurred vision Cardiovascular: Dizziness. denies: Chest pain Respiratory: Cough. denies: Wheezing Gastrointestinal: Abdominal pain, Diarrhea, Nausea Genitourinary: Frequency. denies: Dysuria Female Genitourinary: No symptoms reported Musculoskeletal: Back pain Skin: denies: Rash Hematologic/Lymphatic: No symptoms reported Neurological/Psychological: denies: Confusion, Headaches -: Yes All other systems reviewed and negative Physical Exam - Vital signs Vitals: Temp Pulse Resp BP Pulse Ox 99.6 F 76 24 H 159/88 H 97 06/10/18 13:21 06/10/18 13:21 06/10/18 13:21 06/10/18 13:21 06/10/18 13:21 Interpretation: Hypertensive. No: Hypoxic, Febrile - Notes Notes: PHYSICAL EXAMINATION: GENERAL: Well-appearing, well-nourished and in no acute distress. HEAD: Atraumatic, normocephalic. EYES: Pupils equal round and reactive to light, extraocular movements intact, conjunctiva are normal. ENT: Nares patent, oropharynx clear without exudates. Moist mucous membranes. NECK: Normal range of motion, supple without lymphadenopathy LUNGS: Mild expiratory wheeze in the lower lung gonzalez bilaterally. No tachypnea, accessory muscle use, hypoxia. HEART: Regular rate and rhythm without murmurs ABDOMEN: Soft, nontender, nondistended abdomen. No guarding, no rebound. No masses appreciated. Female : deferred Musculoskeletal: Normal range of motion, no pitting or edema. No cyanosis. NEUROLOGICAL: Cranial nerves grossly intact. Normal speech, normal gait. Normal sensory, motor exams PSYCH: Normal mood, normal affect. SKIN: Warm, Dry, normal turgor, no rashes or lesions noted. Course - Re-evaluation Re-evalutation: 06/11/18 00:37 Laboratory 06/10/18 06/10/18 06/10/18 14:40 14:40 14:40 WBC 4.5 RBC 3.91 Hgb 12.5 Hct 36.2 MCV 93 MCH 31.9 MCHC 34.5 RDW 14.5 H Plt Count 186 Seg Neutrophils % 63.2 Lymphocytes % 16.1 Monocytes % 19.3 H Eosinophils % 0.5 Basophils % 0.9 Absolute Neutrophils 2.8 Absolute Lymphocytes 0.7 Absolute Monocytes 0.9 Absolute Eosinophils 0.0 Absolute Basophils 0.0 VBG pH VBG pCO2 VBG HCO3 VBG Base Excess Sodium 142.3 Potassium 3.6 Chloride 105 Carbon Dioxide 26 Anion Gap 11 BUN 22 H Creatinine 1.41 H Est GFR ( Amer) 44 L Est GFR (Non-Af Amer) 37 L Glucose 141 H Calcium 10.0 Total Bilirubin 0.4 Direct Bilirubin 0.3 Neonat Total Bilirubin Not Reportable Neonat Direct Bilirubin Not Reportable Neonat Indirect Bili Not Reportable AST 33 ALT 18 Alkaline Phosphatase 77 Creatine Kinase 105 CK-MB (CK-2) 1.52 Troponin I 0.029 NT-Pro-B Natriuret Pep Total Protein 7.6 Albumin 4.3 Lipase 100.5 Urine Color Urine Appearance Urine pH Ur Specific [place] Urine Protein Urine Glucose (UA) Urine Ketones Urine Blood Urine Nitrite Urine Bilirubin Urine Urobilinogen Ur Leukocyte Esterase Urine WBC (Auto) Urine RBC (Auto) U Hyaline Cast (Auto) Squamous Epi Cells Auto Urine Mucus (Auto) Urine Ascorbic Acid Influenza A (Rapid) Influenza B (Rapid) 06/10/18 06/10/18 06/10/18 14:40 17:40 18:08 WBC RBC Hgb Hct MCV MCH MCHC RDW Plt Count Seg Neutrophils % Lymphocytes % Monocytes % Eosinophils % Basophils % Absolute Neutrophils Absolute Lymphocytes Absolute Monocytes Absolute Eosinophils Absolute Basophils VBG pH 7.53 H VBG pCO2 27.8 L VBG HCO3 22.8 VBG Base Excess 0.9 Sodium Potassium Chloride Carbon Dioxide Anion Gap BUN Creatinine Est GFR ( Amer) Est GFR (Non-Af Amer) Glucose Calcium Total Bilirubin Direct Bilirubin Neonat Total Bilirubin Neonat Direct Bilirubin Neonat Indirect Bili AST ALT Alkaline Phosphatase Creatine Kinase CK-MB (CK-2) Troponin I NT-Pro-B Natriuret Pep 382 Total Protein Albumin Lipase Urine Color YELLOW Urine Appearance CLOUDY Urine pH 5.0 Ur Specific [place] 1.025 Urine Protein 30 H Urine Glucose (UA) NEGATIVE Urine Ketones NEGATIVE Urine Blood NEGATIVE Urine Nitrite NEGATIVE Urine Bilirubin NEGATIVE Urine Urobilinogen 2.0 H Ur Leukocyte Esterase NEGATIVE Urine WBC (Auto) 3 Urine RBC (Auto) 1 U Hyaline Cast (Auto) 46 Squamous Epi Cells Auto 1 Urine Mucus (Auto) MANY Urine Ascorbic Acid NEGATIVE Influenza A (Rapid) Influenza B (Rapid) 06/10/18 18:13 WBC RBC Hgb Hct MCV MCH MCHC RDW Plt Count Seg Neutrophils % Lymphocytes % Monocytes % Eosinophils % Basophils % Absolute Neutrophils Absolute Lymphocytes Absolute Monocytes Absolute Eosinophils Absolute Basophils VBG pH VBG pCO2 VBG HCO3 VBG Base Excess Sodium Potassium Chloride Carbon Dioxide Anion Gap BUN Creatinine Est GFR ( Amer) Est GFR (Non-Af Amer) Glucose Calcium Total Bilirubin Direct Bilirubin Neonat Total Bilirubin Neonat Direct Bilirubin Neonat Indirect Bili AST ALT Alkaline Phosphatase Creatine Kinase CK-MB (CK-2) Troponin I NT-Pro-B Natriuret Pep Total Protein Albumin Lipase Urine Color Urine Appearance Urine pH Ur Specific [place] Urine Protein Urine Glucose (UA) Urine Ketones Urine Blood Urine Nitrite Urine Bilirubin Urine Urobilinogen Ur Leukocyte Esterase Urine WBC (Auto) Urine RBC (Auto) U Hyaline Cast (Auto) Squamous Epi Cells Auto Urine Mucus (Auto) Urine Ascorbic Acid Influenza A (Rapid) NEGATIVE Influenza B (Rapid) NEGATIVE 06/11/18 02:52 Presentation of an overall well-appearing patient in no acute distress with complaints of nausea, vomiting, diarrhea. This is consistent with likely viral gastroenteritis. Patient has no abdominal tenderness on exam and specifically no tenderness in the RLQ, LLQ, RUQ. Overall well hydrated on exam. Able to tolerate oral intake here in the emergency department. Low clinical suspicion for any acute life-threatening etiology based on exam and history including acute cholecystitis, SBO, appendicitis, nephrolithiasis, or pylonephritis. CMP without evidence of acute hepatitis or significant dehydration. Will plan for discharge at this time with return precautions and followup recommendations. Patient very upset regarding her length of stay in the emergency department. I did try to explain that we are currently in dated with patients but patient is getting dressed and disconnecting herself from the monitor. Patient was evaluated and treated as appropriate for the patient's presenting symptoms and complaint, with consideration of any critical or life threatening conditions that may be associated with their obtained history and exam as noted above. All results were discussed with patient. Patient provided the opportunity to ask questions, and express concerns. Patient was educated on treatments based on their presumed diagnosis as noted above. At this time we will discharge the patient with return precautions and follow-up recommendations. Verbal discharge instructions given a the bedside. Medication warnings reviewed. Patient is in agreement with this plan and has verbalized understanding of return precautions. After careful consideration I feel that that patient can be safely discharged from the emergency department, they were advised to followup with a primary care physician in 2-3 days. Dictation on this chart was performed using voice recognition software and may result in unintended grammatical, spelling, syntax or errors. 06/11/18 02:53 - Vital Signs Vital signs: Temp Pulse Resp BP Pulse Ox 99.2 F 69 16 158/87 H 97 06/10/18 20:35 06/10/18 20:35 06/10/18 20:35 06/10/18 20:35 06/10/18 20:35 - Laboratory Result Diagrams: 06/10/18 14:40 06/10/18 14:40 Laboratory results interpreted by me: 06/10/18 06/10/18 06/10/18 14:40 14:40 17:40 RDW 14.5 H Monocytes % 19.3 H VBG pH VBG pCO2 BUN 22 H Creatinine 1.41 H Est GFR ( Amer) 44 L Est GFR (Non-Af Amer) 37 L Glucose 141 H Urine Protein 30 H Urine Urobilinogen 2.0 H 06/10/18 18:08 RDW Monocytes % VBG pH 7.53 H VBG pCO2 27.8 L BUN Creatinine Est GFR ( Amer) Est GFR (Non-Af Amer) Glucose Urine Protein Urine Urobilinogen - Diagnostic Test Radiology reviewed: Image reviewed, Reports reviewed Discharge - Discharge Clinical Impression: Nausea vomiting and diarrhea, Acute kidney injury, Dehydration Hypertension Qualifiers: Hypertension type: unspecified Qualified Code(s): I10 - Essential (primary) hypertension Condition: Good Disposition: HOME, SELF-CARE Instructions: Diarrhea, Nonspecific ([facility]), Intravenous (IV) Fluids ([facility]), Viral Syndrome ([facility]), Vomiting ([facility]) Additional Instructions: Your labs show that you are dehydrated. Please drink as much fluid as you can. Please take Zofran prior to fluids or food. Prescriptions: Loperamide HCl [Loperamide] 2 mg PO ASDIR PRN #14 tablet PRN Reason: Diarrhea Ondansetron [Zofran Odt 4 mg Tablet] 1 - 2 tab PO Q4H PRN #15 tab.rapdis PRN Reason: For Nausea/Vomiting Forms: Elevated Blood Pressure Referrals: GROVER ROME MD [Primary Care Provider] - Follow up as needed
[2018-06-10 18:15] LABS: APPEARANCE,URINE CLOUDY; BILIRUBIN,URINE NEGATIVE (NEGATIVE); GLUCOSE, URINE NEGATIVE (NEGATIVE); KETONES,URINE NEGATIVE (NEGATIVE); LEUKOCYTE ESTERASE,URINE NEGATIVE (NEGATIVE); NITRITE,URINE NEGATIVE (NEGATIVE); PROTEIN,URINE 30 mg/dL (NEGATIVE); URINE SPECIFIC GRAVITY 1.025
[2018-06-10 18:16] LABS: COLOR,URINE YELLOW
[2018-06-10 18:34] LABS: VENOUS BLOOD BASE EXCESS 0.9 mmol/L; VENOUS BLOOD HCO3 22.8 mmol/L (20-32); VENOUS BLOOD PCO2 27.8 mmHg (35-63); VENOUS BLOOD PH 7.53 (7.30-7.42)
[2018-06-10 19:37] LABS: A TYPE INFLUENZA AG NEGATIVE (NEGATIVE); B INFLUENZA AG NEGATIVE (NEGATIVE)
[2018-06-10] MEDS ORDERED: ONDANSETRON ODT 4 MG TAB (6 TAB/ER DISP) PO PRN (20:28)
[2018-06-10 20:36] VITALS: BP 158/87
== END 2018-06-10 20:37 | disposition home or self-care (01) ==
LOC: ER 12:37
DX: R11.2 Nausea with vomiting, unspecified (principal); R19.7 Diarrhea, unspecified; E86.0 Dehydration; N17.9 Acute kidney failure, unspecified; I10 Essential (primary) hypertension; I25.10 Atherosclerotic heart disease of native coronary artery without angina pectoris; Z95.1 Presence of aortocoronary bypass graft; J02.9 Acute pharyngitis, unspecified; R05 Cough; R61 Generalized hyperhidrosis; R68.83 Chills (without fever); M54.9 Dorsalgia, unspecified; R10.9 Unspecified abdominal pain; R35.0 Frequency of micturition; R06.2 Wheezing; Z95.5 Presence of coronary angioplasty implant and graft
CPT/HCPCS: 94640; 99284; 96361; 96374; 36415; 82553; 82550; 83690; 85025; 80053; 81001; 84484; 82803; 87804; 83880; 71046; A9270 ×3; J2405; J7040; J7620

== ENCOUNTER 2018-11-03 11:34 | Emergency (ER) | payer MEDICARE, MEDICAID ==
--- NOTE | 2018-11-03 11:45 | ER Document Report ---
ED General - General Stated Complaint: LOW HEART RATE Time Seen by Provider: 11/03/18 11:43 Primary Care Provider: GROVER ROME MD [Primary Care Provider] - Follow up as needed Notes: 73-year-old lady with triple bypass and A. fib presents with bradycardia. She is been feeling weak and dizzy for 3 days, intermittently, worse when standing, and actually fainted 2 nights ago. She denies chest pain or pressure but has been having intermittent chest pain at night. She takes sotalol for A. fib is not known to be on blood thinner. History of on sotalol. All history obtained from paperwork as she is recently unsure about the details. She is seen at [facility] and has had a quadruple bypass but does not currently have a pacemaker. TRAVEL OUTSIDE OF THE [place] IN LAST 30 DAYS: No - Related Data Allergies/Adverse Reactions: amlodipine besylate [From [employer]] Adverse Reaction (Unknown, Verified 06/10/18 13:09) cough Past Medical History - Social History Smoking Status: Never Smoker Family History: Reviewed & Not Pertinent - Past Medical History Cardiac Medical History: Reports: Hx Atrial Fibrillation, Hx Coronary Artery Disease, Hx Heart Attack, Hx Hypercholesterolemia, Hx Hypertension Denies: Hx DVT, Hx Pulmonary Embolism Pulmonary Medical History: Reports: Hx Sleep Apnea - CPAP pressure 15, room air Denies: Hx Asthma, Hx COPD, Hx Tuberculosis Neurological Medical History: Denies: Hx Seizures Endocrine Medical History: Denies: Hx Diabetes Mellitus Type 1, Hx Diabetes Mellitus Type 2, Hx Hyperthyroidism, Hx Hypothyroidism Renal/ Medical History: Denies: Hx Peritoneal Dialysis GI Medical History: Reports: Hx Gastroesophageal Reflux Disease. Denies: Hx Cirrhosis, Hx Hepatitis Musculoskeletal Medical History: Reports Hx Arthritis, Reports Hx Gout Psychiatric Medical History: Denies: Hx Depression Infectious Medical History: Denies: Hx C-Diff, Hx Hepatitis, Hx MRSA Past Surgical History: Reports: Hx Cardiac Catheterization - October 05, 2016, Dr. Elvis Field [facility] Hx Cardiac Surgery - CABGx3, Hx Coronary Artery Bypass Graft - 2005, three-vessel, Hx Coronary Stent, Hx Hysterectomy - Immunizations Hx Diphtheria, Pertussis, Tetanus Vaccination: No Review of Systems - Review of Systems Notes: REVIEW OF SYSTEMS GEN: Denies fever, chills, weight loss ENT: Denies sore throat, nasal discharge, ear pain EYES: Denies blurry vision, eye pain, discharge CV: Chest pain near syncope RESP: Denies cough, shortness of breath, wheezing GI: Denies abdominal pain, nausea, vomiting, diarrhea MSK: Denies joint pain/swelling, edema, SKIN: Denies rash, skin lesions LYMPH: Denies swollen glands/lymph nodes NEURO: Denies headache, focal weakness or numbness, dizziness PSYCH: Denies depression, suicidal or homicidal ideation PHYSICAL EXAMINATION General: No acute distress, well-nourished Head: Atraumatic, normocephalic ENT: Mouth normal, oropharynx moist, no exudates or tonsillar enlargement Eyes: Conjunctiva normal, pupils equal, lids normal Neck: No JVD, supple, no guarding or Vascular: Regular bradycardia Resp: No resp distress, equal and normal breath sounds bilaterally GI: Nondistended, soft, no tenderness to palpation, no rebound or guarding Ext: No deformities, no edema, normal range of motion in upper and lower ext Back: No CVA or midline TTP Skin: No rash, warm Lymphatic: No lymphadeopathy noted Neuro: Awake, alert. Face symmetric. GCS 15. Physical Exam - Vital signs Vitals: Resp 11 L 11/03/18 11:41 Course - Re-evaluation Re-evalutation: 11/03/18 13:06 Medic bradycardia history of A. tien on sotalol. Could be medication effect or sick sinus syndrome requiring pacemaker. Patient stable emergency department good blood pressures and no symptoms that her heart rate vastly between 38 and 44. Patient has placed her labs done. 11/03/18 13:[address] valle at [facility]. Patient's troponin is negative, and given her possible need for pacemaker she will be transferred to high-level care. Has multiple times, and although her heart rate did dip into the 30s did not require any kind of pacing. Pacer pads remain. - Vital Signs Vital signs: Temp Pulse Resp BP Pulse Ox 98.3 F 17 199/78 H 99 11/03/18 12:36 11/03/18 13:12 11/03/18 13:12 11/03/18 13:12 - Laboratory Result Diagrams: 11/03/18 12:11 11/03/18 12:11 Laboratory results interpreted by me: 11/03/18 11/03/18 12:11 12:11 RBC 3.41 L Hgb 10.8 L Hct 31.3 L RDW 14.3 H Chloride 109 H - Diagnostic Test Radiology reviewed: Image reviewed, Reports reviewed - EKG Interpretation by Me Rate: Bradycardia Rhythm: Other - Sinus pericardial versus ectopic bradycardia When compared to previous EKG there are: Previous EKG unavailable Critical Care Note - Critical Care Note Total time excluding time spent on procedures (mins): 34 Comments: The above patient is critically ill. Not including procedures, but including direct re-evaluations, speaking with patient and/or consultants, interpreting results, and documenting, I spent the total amount of minute listed listed above on critical care time Discharge - Discharge Clinical Impression: Symptomatic bradycardia Chest pain Qualifiers: Chest pain type: other chest pain Qualified Code(s): R07.89 - Other chest pain; R07.8 - Other chest pain Condition: Fair Disposition: [facility] Referrals: GROVER ROME MD [Primary Care Provider] - Follow up as needed
[2018-11-03 12:26] LABS: ABSOLUTE BASOPHILS # (AUTO) 0.1 10^3/uL (0.0-0.2); ABSOLUTE EOSINOPHILS # (AUTO) 0.1 10^3/uL (0.0-0.6); ABSOLUTE LYMPHOCYTES (AUTO) 1.2 10^3/uL (0.5-4.7); ABSOLUTE MONOCYTES (AUTO) 0.5 10^3/uL (0.1-1.4); ABSOLUTE NEUT (AUTO) 3.4 10^3/uL (1.7-8.2); BASOPHILS % (AUTO) 1.5 % (0-2); EOSINOPHILS % (AUTO) 2.2 % (0-6); HEMATOCRIT 31.3 % (36.0-47.0); HEMOGLOBIN 10.8 g/dL (12.0-15.5); LYMPHOCYTES % (AUTO) 23.1 % (13-45); MEAN CORPUSCULAR HEMOGLOBIN 31.7 pg (27.0-33.4); MEAN CORPUSCULAR HGB CONC 34.5 g/dL (32.0-36.0); MEAN CORPUSCULAR VOLUME 92 fl (80-97); PLATELET COUNT 182 10^3/uL (150-450); RED BLOOD COUNT 3.41 10^6/uL (3.72-5.28); RED CELL DISTRIBUTION WIDTH 14.3 % (11.5-14.0); SEGMENTED NEUTROPHILS % (AUTO) 63.2 % (42-78); TOTAL CELLS COUNTED % (AUTO) 100 %; WHITE BLOOD COUNT 5.4 10^3/uL (4.0-10.5)
[2018-11-03 12:32] LABS: INTERNATIONAL RATION (INR) 1.07; PROTHROMBIN TIME 14.4 SEC (11.4-15.4)
[2018-11-03 12:54] LABS: ANION GAP 9 (5-19); BLOOD UREA NITROGEN 13 mg/dL (7-20); CARBON DIOXIDE 26 mmol/L (22-30); CHLORIDE 109 mmol/L (98-107); GLUCOSE 103 mg/dL (75-110)
--- NOTE | 2018-11-03 12:55 | RADIOLOGY REPORT (SQ) ---
EXAM DESCRIPTION: CHEST SINGLE VIEW COMPLETED DATE/TIME: 11/03/2018 12:31 pm REASON FOR STUDY: Syncope shortness of breath as of breath and syncope COMPARISON: 06/10/2018 EXAM PARAMETERS: NUMBER OF VIEWS: One view. TECHNIQUE: Single frontal radiographic view of the chest acquired. RADIATION DOSE: NA LIMITATIONS: None. FINDINGS: LUNGS AND PLEURA: No opacities, masses or pneumothorax. No pleural effusion. MEDIASTINUM AND HILAR STRUCTURES: No masses. Contour normal. HEART AND VASCULAR STRUCTURES: Cardiomegaly. No pulmonary edema. BONES: No acute findings. HARDWARE: Sternotomy wires. OTHER: No other significant finding. IMPRESSION: Cardiomegaly without pulmonary edema. TECHNICAL DOCUMENTATION: JOB ID: [id number] [employer]- All Rights Reserved Reading location - IP/workstation name: [email or web address]
--- NOTE | 2018-11-03 16:18 | EKG REPORT ---
SEVERITY:- ABNORMAL ECG - SINUS OR ECTOPIC ATRIAL BRADYCARDIA CONSIDER ANTERIOR INFARCT NONSPECIFIC T ABNORMALITIES, LATERAL LEADS : Confirmed by: Allegra Johnosn MD 03-Nov-2018 16:16:52
[2018-11-03 20:03] VITALS: BP 186/79
== END 2018-11-03 20:00 | disposition short-term general hospital (02) ==
LOC: ER 11:34
DX: R00.1 Bradycardia, unspecified (principal); R07.89 Other chest pain; R42 Dizziness and giddiness; R53.1 Weakness; I48.91 Unspecified atrial fibrillation; E78.00 Pure hypercholesterolemia, unspecified; I10 Essential (primary) hypertension; I25.2 Old myocardial infarction; Z95.1 Presence of aortocoronary bypass graft
CPT/HCPCS: 36415; 71045; 80048; 84443; 84484; 85025; 85610; 93005; 93010; 99291

== ENCOUNTER 2018-12-28 11:55 | Inpatient (IN) | payer MEDICARE, MEDICAID ==
--- NOTE | 2018-12-28 12:41 | ER Document Report ---
ED Medical Screen (RME) - General Chief Complaint: Dizziness Stated Complaint: DIZZINESS Time Seen by Provider: 12/28/18 12:31 Mode of Arrival: Medic Information source: Patient Notes: 73-year-old female presented to ED for complaint of tachycardia and palpitations with dizzy and nausea. She states she said the dizziness for 2 days. She states she went to the doctor today and they sent her to the emergency room because she was having tachycardia. Her pulse when she was seen over here was 133. She states she has a history of a triple bypass 18 years ago but she had a negative heart cath last year. She also has a history of high blood pressure reflux coronary artery repair and A. fib. She has had a hysterectomy and she is on Eliquis. Patient is alert oriented respirations regular and unlabored at this time. I have greeted and performed a rapid initial assessment of this patient. A comprehensive ED assessment and evaluation of the patient, analysis of test results and completion of medical decision making process will be conducted by an additional ED providers. Dictation of this chart was performed using voice recognition software; therefore, there may be some unintended grammatical errors. TRAVEL OUTSIDE OF THE [place] IN LAST 30 DAYS: No - Related Data Allergies/Adverse Reactions: amlodipine besylate [From [email or web address]] Adverse Reaction (Unknown, Verified 12/28/18 12:32) cough Past Medical History - Past Medical History Cardiac Medical History: Reports: Hx Atrial Fibrillation, Hx Coronary Artery Disease, Hx Heart Attack, Hx Hypercholesterolemia, Hx Hypertension Denies: Hx DVT, Hx Pulmonary Embolism Pulmonary Medical History: Reports: Hx Sleep Apnea - CPAP pressure 15, room air Denies: Hx Asthma, Hx COPD, Hx Tuberculosis Neurological Medical History: Denies: Hx Seizures Endocrine Medical History: Denies: Hx Diabetes Mellitus Type 1, Hx Diabetes Mellitus Type 2, Hx Hyperthyroidism, Hx Hypothyroidism Renal/ Medical History: Denies: Hx Peritoneal Dialysis GI Medical History: Reports: Hx Gastroesophageal Reflux Disease. Denies: Hx Cirrhosis, Hx Hepatitis Musculoskeltal Medical History: Reports Hx Arthritis, Reports Hx Gout Psychiatric Medical History: Denies: Hx Depression Infectious Medical History: Denies: Hx C-Diff, Hx Hepatitis, Hx MRSA Past Surgical History: Reports: Hx Cardiac Catheterization - October 05, 2016, Dr. Elvis Lindquist., Hx Cardiac Surgery - CABGx3, Hx Coronary Artery Bypass Graft - 2005, three-vessel, Hx Coronary Stent, Hx Hysterectomy - Immunizations Hx Diphtheria, Pertussis, Tetanus Vaccination: No History of Influenza Vaccine for 03/2017 - 08/2017 Season: No Physical Exam - Vital signs Vitals: Temp Pulse Resp BP Pulse Ox 98.1 F 130 H 18 118/81 92 12/28/18 12:16 12/28/18 12:16 12/28/18 12:16 12/28/18 12:16 12/28/18 12:16 Course - Vital Signs Vital signs: Temp Pulse Resp BP Pulse Ox 98.5 F 130 H 22 H 122/90 H 100 12/28/18 20:05 12/28/18 12:16 12/28/18 20:01 12/28/18 20:01 12/28/18 20:01 - Laboratory Result Diagrams: 12/28/18 15:58 12/28/18 15:58 Laboratory results interpreted by me: 12/28/18 12/28/18 12/28/18 12:55 15:58 15:58 Hgb 11.6 L Hct 34.8 L PT 17.7 H APTT 46.9 H Est GFR (Non-Af Amer) NT-Pro-B Natriuret Pep Urine Protein 30 H Ur Leukocyte Esterase TRACE H Urine Ascorbic Acid 40 H 12/28/18 12/28/18 15:58 15:58 Hgb Hct PT APTT Est GFR (Non-Af Amer) 55 L NT-Pro-B Natriuret Pep 1430 H Urine Protein Ur Leukocyte Esterase Urine Ascorbic Acid Doctor's Discharge - Discharge Clinical Impression: Atrial fibrillation with rapid ventricular response Condition: Good Disposition: ADMITTED INPATIENT
[2018-12-28 13:38] LABS: AMORPHOUS SEDIMENT,URINE TRACE /HPF; APPEARANCE,URINE CLOUDY; BILIRUBIN,URINE NEGATIVE (NEGATIVE); COLOR,URINE AMBER; GLUCOSE, URINE NEGATIVE (NEGATIVE); KETONES,URINE NEGATIVE (NEGATIVE); LEUKOCYTE ESTERASE,URINE TRACE (NEGATIVE); NITRITE,URINE NEGATIVE (NEGATIVE); PROTEIN,URINE 30 mg/dL (NEGATIVE); URINE SPECIFIC GRAVITY 1.023; UROBILINOGEN,URINE NEGATIVE mg/dL (<2.0)
--- NOTE | 2018-12-28 13:50 | RADIOLOGY REPORT (SQ) ---
EXAM DESCRIPTION: CHEST 2 VIEWS COMPLETED DATE/TIME: 12/28/2018 1:35 pm REASON FOR STUDY: tachycardia, palpitation COMPARISON: 11/03/2018 EXAM PARAMETERS: NUMBER OF VIEWS: two views TECHNIQUE: Digital Frontal and Lateral radiographic views of the chest acquired. RADIATION DOSE: NA LIMITATIONS: none FINDINGS: LUNGS AND PLEURA: No opacities, masses or pneumothorax. No pleural effusion. MEDIASTINUM AND HILAR STRUCTURES: No masses or contour abnormalities. HEART AND VASCULAR STRUCTURES: Cardiomegaly. No pulmonary edema. BONES: No acute findings. HARDWARE: Sternotomy wires. Graft markers. OTHER: No other significant finding. IMPRESSION: Cardiomegaly without pulmonary edema. TECHNICAL DOCUMENTATION: JOB ID: [id number] [employer]- All Rights Reserved Reading location - IP/workstation name: [email or web address]
[2018-12-28 16:13] LABS: ABSOLUTE BASOPHILS # (AUTO) 0.1 10^3/uL (0.0-0.2); ABSOLUTE EOSINOPHILS # (AUTO) 0.1 10^3/uL (0.0-0.6); ABSOLUTE LYMPHOCYTES (AUTO) 1.8 10^3/uL (0.5-4.7); ABSOLUTE MONOCYTES (AUTO) 0.5 10^3/uL (0.1-1.4); ABSOLUTE NEUT (AUTO) 4.3 10^3/uL (1.7-8.2); BASOPHILS % (AUTO) 1.4 % (0-2); EOSINOPHILS % (AUTO) 1.1 % (0-6); HEMATOCRIT 34.8 % (36.0-47.0); HEMOGLOBIN 11.6 g/dL (12.0-15.5); LYMPHOCYTES % (AUTO) 26.2 % (13-45); MEAN CORPUSCULAR HEMOGLOBIN 30.9 pg (27.0-33.4); MEAN CORPUSCULAR HGB CONC 33.5 g/dL (32.0-36.0); MEAN CORPUSCULAR VOLUME 92 fl (80-97); MONOCYTES % (AUTO) 7.3 % (3-13); PLATELET COUNT 246 10^3/uL (150-450); RED BLOOD COUNT 3.77 10^6/uL (3.72-5.28); RED CELL DISTRIBUTION WIDTH 13.7 % (11.5-14.0); TOTAL CELLS COUNTED % (AUTO) 100 %; WHITE BLOOD COUNT 6.8 10^3/uL (4.0-10.5)
[2018-12-28 16:26] LABS: INTERNATIONAL RATION (INR) 1.44; PROTHROMBIN TIME 17.7 SEC (11.4-15.4)
[2018-12-28 16:27] LABS: PARTIAL THROMBOPLASTIN TIME 46.9 SEC (23.5-35.8)
[2018-12-28 16:37] LABS: ALANINE AMINOTRANSFERASE 11 U/L (9-52); ALBUMIN 4.9 g/dL (3.5-5.0); ALKALINE PHOSPHATASE 68 U/L (38-126); ANION GAP 9 (5-19); ASPARTATE AMINO TRANSFERASE 23 U/L (14-36); BILIRUBIN,DIRECT 0.4 mg/dL (0.0-0.4); BILIRUBIN,TOTAL 0.6 mg/dL (0.2-1.3); BLOOD UREA NITROGEN 14 mg/dL (7-20); CALCIUM 10.2 mg/dL (8.4-10.2); CARBON DIOXIDE 26 mmol/L (22-30); CHLORIDE 107 mmol/L (98-107); CREATINE KINASE 88 U/L (30-135); GLUCOSE 110 mg/dL (75-110); POTASSIUM 4.2 mmol/L (3.6-5.0); TOTAL PROTEIN 8.2 g/dL (6.3-8.2)
--- NOTE | 2018-12-28 16:44 | ER Document Report ---
ED Dizziness/Weakness - General Chief Complaint: Dizziness Stated Complaint: DIZZINESS Time Seen by Provider: 12/28/18 12:31 Mode of Arrival: Medic Notes: Sherice 3-year-old is a 73-year-old female patient emergency department chief complaint of dizziness. Heart racing. Patient was recently admitted to another hospital for bradycardia. Patient was on sotalol and appears to cause symptomatic bradycardia. That medication was stopped. Now she is having atrial fibrillation with a rapid ventricular response. Feeling weak, shortness of breath. No significant chest pain. Of note, she was discharged with a presc ription for hydralazine and the instructions were to take 100 mg 3 times a day. She states that since she has been doing that she has felt horrible. Was told by her primary care doctor to stop that medication and only do about 1 tablet twice a day. Still feeling like she is having a rapid heart rate. Denies any other major symptoms at this time. Does have some chronic edema to the left lower extremity status post vein graft from open heart surgery. TRAVEL OUTSIDE OF THE [place] IN LAST 30 DAYS: No - HPI Patient complains to provider of: Dizziness - Related Data Allergies/Adverse Reactions: amlodipine besylate [From [facility]] Adverse Reaction (Unknown, Verified 12/28/18 12:32) cough Past Medical History - General Information source: Patient - Social History Smoking Status: Former Smoker Chew tobacco use (# tins/day): No Frequency of alcohol use: None Drug Abuse: None Lives with: Family Family History: Reviewed & Not Pertinent Patient has suicidal ideation: No Patient has homicidal ideation: No - Past Medical History Cardiac Medical History: Reports: Hx Atrial Fibrillation, Hx Coronary Artery Disease, Hx Heart Attack, Hx Hypercholesterolemia, Hx Hypertension Denies: Hx DVT, Hx Pulmonary Embolism Pulmonary Medical History: Reports: Hx Sleep Apnea - CPAP pressure 15, room air Denies: Hx Asthma, Hx COPD, Hx Tuberculosis Neurological Medical History: Denies: Hx Seizures Endocrine Medical History: Denies: Hx Diabetes Mellitus Type 1, Hx Diabetes Mellitus Type 2, Hx Hyperthyroidism, Hx Hypothyroidism Renal/ Medical History: Denies: Hx Peritoneal Dialysis GI Medical History: Reports: Hx Gastroesophageal Reflux Disease. Denies: Hx Cirrhosis, Hx Hepatitis Musculoskeletal Medical History: Reports Hx Arthritis, Reports Hx Gout Psychiatric Medical History: Denies: Hx Depression Infectious Medical History: Denies: Hx C-Diff, Hx Hepatitis, Hx MRSA Past Surgical History: Reports: Hx Cardiac Catheterization - October 05, 2016, Dr. Elvis Field [facility] Hx Cardiac Surgery - CABGx3, Hx Coronary Artery Bypass Graft - 2006, three-vessel, Hx Coronary Stent, Hx Hysterectomy - Immunizations Hx Diphtheria, Pertussis, Tetanus Vaccination: No Review of Systems - Review of Systems Notes: Constitutional: denies: Chills, Diaphoresis, Fever, Malaise, Weakness EENT: denies: Eye discharge, Blurred vision, Tearing, Double vision, Nose congestion, Nose discharge, Throat swelling, Mouth pain Cardiovascular: + Palpitations, not feeling well, dizziness, denies chest pain. Respiratory: denies: Cough, Hurts to breathe, Wheezing, Shortness of breath Gastrointestinal: denies: Abdominal pain, Diarrhea, Nausea, Vomiting, Black stools, bright red blood in stool Genitourinary: denies: Burning, Dysuria, Discharge, Frequency, Flank pain, Hematuria Musculoskeletal: denies: Joint pain, Joint swelling, Muscle pain, Muscle s tiffness, back pain Hematologic/Lymphatic: denies: Anemia, Easy bleeding, Easy bruising, Blood joseph ts Neurological/Psychological: denies: Confusion, Dementia, Depression, Loss of consciousness Skin: No lesions, no masses, no skin breakdown, no abscesses Physical Exam - Vital signs Vitals: Temp Pulse Resp BP Pulse Ox 98.1 F 130 H 18 118/81 92 12/28/18 12:16 12/28/18 12:16 12/28/18 12:16 12/28/18 12:16 12/28/18 12:16 Interpretation: Tachycardic - General General appearance: Appears well, Alert - HEENT Head: Normocephalic, Atraumatic Eyes: Normal Pupils: PERRL - Respiratory Respiratory status: No respiratory distress Chest status: Nontender Breath sounds: Normal Chest palpation: Normal - Cardiovascular Rhythm: Regular, Irregularly irregular, Tachycardia Heart sounds: Normal auscultation Murmur: No - Abdominal Inspection: Normal Distension: No distension Bowel sounds: Normal Tenderness: Nontender Organomegaly: No organomegaly - Back Back: Normal, Nontender - Extremities General upper extremity: Normal inspection, Nontender, Normal color, Normal ROM, Normal temperature General lower extremity: Normal inspection, Nontender, Edema - Asymmetrical edema left leg greater than the right but appears to be chronic and associated with prior surgical scarring., Normal color, Normal ROM, Normal temperature, Normal weight bearing. No: Milad's sign - Neurological Neuro grossly intact: Yes Cognition: Normal Orientation: AAOx4 [place] Coma Scale Eye Opening: Spontaneous Noel Coma Scale Verbal: Oriented Noel Coma Scale Motor: Obeys Commands Noel Coma Scale Total: 15 Speech: Normal Motor strength normal: LUE, RUE, LLE, RLE Sensory: Normal - Psychological Associated symptoms: Normal affect, Normal mood - Skin Skin Temperature: Warm Skin Moisture: Dry Skin Color: Normal Course - Re-evaluation Re-evalutation: 12/28/18 17:53 Patient appears to have a tachycardia and appears to be irregular. Favor atrial fibrillation with a rapid ventricular response. Patient was on sotalol and recently taken off. At this time she is manifesting some new onset CHF with elevated BNP. I am going to try and slow her heart rate down nicely with some diltiazem. More likely she will need to be admitted to get this stabilized as her troponin is slightly elevated at 0.024 12/28/18 17:58 Laboratory 12/28/18 12/28/18 12/28/18 12:55 15:58 15:58 WBC 6.8 RBC 3.77 Hgb 11.6 L Hct 34.8 L MCV 92 MCH 30.9 MCHC 33.5 RDW 13.7 Plt Count 246 Seg Neutrophils % 64.0 Lymphocytes % 26.2 Monocytes % 7.3 Eosinophils % 1.1 Basophils % 1.4 Absolute Neutrophils 4.3 Absolute Lymphocytes 1.8 Absolute Monocytes 0.5 Absolute Eosinophils 0.1 Absolute Basophils 0.1 PT 17.7 H INR 1.44 APTT 46.9 H Sodium Potassium Chloride Carbon Dioxide Anion Gap BUN Creatinine Est GFR ( Amer) Est GFR (Non-Af Amer) Glucose Calcium Total Bilirubin Direct Bilirubin Neonat Total Bilirubin Neonat Direct Bilirubin Neonat Indirect Bili AST ALT Alkaline Phosphatase Creatine Kinase CK-MB (CK-2) Troponin I NT-Pro-B Natriuret Pep Total Protein Albumin Urine Color NOÉ Urine Appearance CLOUDY Urine pH 5.0 Ur Specific [place] 1.023 Urine Protein 30 H Urine Glucose (UA) NEGATIVE Urine Ketones NEGATIVE Urine Blood NEGATIVE Urine Nitrite NEGATIVE Urine Bilirubin NEGATIVE Urine Urobilinogen NEGATIVE Ur Leukocyte Esterase TRACE H Urine WBC (Auto) 9 Urine RBC (Auto) 1 U Hyaline Cast (Auto) 61 Urine Bacteria (Auto) TRACE Squamous Epi Cells Auto 2 Amorphous Sediment Auto TRACE Urine Mucus (Auto) MANY Urine Ascorbic Acid 40 H 12/28/18 12/28/18 12/28/18 15:58 15:58 15:58 WBC RBC Hgb Hct MCV MCH MCHC RDW Plt Count Seg Neutrophils % Lymphocytes % Monocytes % Eosinophils % Basophils % Absolute Neutrophils Absolute Lymphocytes Absolute Monocytes Absolute Eosinophils Absolute Basophils PT INR APTT Sodium 141.7 Potassium 4.2 Chloride 107 Carbon Dioxide 26 Anion Gap 9 BUN 14 Creatinine 0.99 Est GFR ( Amer) > 60 Est GFR (Non-Af Amer) 55 L Glucose 110 Calcium 10.2 Total Bilirubin 0.6 Direct Bilirubin 0.4 Neonat Total Bilirubin Not Reportable Neonat Direct Bilirubin Not Reportable Neonat Indirect Bili Not Reportable AST 23 ALT 11 Alkaline Phosphatase 68 Creatine Kinase 88 CK-MB (CK-2) 0.92 Troponin I 0.027 NT-Pro-B Natriuret Pep 1430 H Total Protein 8.2 Albumin 4.9 Urine Color Urine Appearance Urine pH Ur Specific [place] Urine Protein Urine Glucose (UA) Urine Ketones Urine Blood Urine Nitrite Urine Bilirubin Urine Urobilinogen Ur Leukocyte Esterase Urine WBC (Auto) Urine RBC (Auto) U Hyaline Cast (Auto) Urine Bacteria (Auto) Squamous Epi Cells Auto Amorphous Sediment Auto Urine Mucus (Auto) Urine Ascorbic Acid 12/28/18 15:58 WBC RBC Hgb Hct MCV MCH MCHC RDW Plt Count Seg Neutrophils % Lymphocytes % Monocytes % Eosinophils % Basophils % Absolute Neutrophils Absolute Lymphocytes Absolute Monocytes Absolute Eosinophils Absolute Basophils PT Cancelled INR Cancelled APTT Cancelled Sodium Potassium Chloride Carbon Dioxide Anion Gap BUN Creatinine Est GFR ( Amer) Est GFR (Non-Af Amer) Glucose Calcium Total Bilirubin Direct Bilirubin Neonat Total Bilirubin Neonat Direct Bilirubin Neonat Indirect Bili AST ALT Alkaline Phosphatase Creatine Kinase CK-MB (CK-2) Troponin I NT-Pro-B Natriuret Pep Total Protein Albumin Urine Color Urine Appearance Urine pH Ur Specific [place] Urine Protein Urine Glucose (UA) Urine Ketones Urine Blood Urine Nitrite Urine Bilirubin Urine Urobilinogen Ur Leukocyte Esterase Urine WBC (Auto) Urine RBC (Auto) U Hyaline Cast (Auto) Urine Bacteria (Auto) Squamous Epi Cells Auto Amorphous Sediment Auto Urine Mucus (Auto) Urine Ascorbic Acid Chest X-Ray 12/28/18 12:37 IMPRESSION: Cardiomegaly without pulmonary edema. A. fib with RVR. Will consult with hospitalist for admission at this time. - Vital Signs Vital signs: Temp Pulse Resp BP Pulse Ox 98.1 F 130 H 17 142/95 H 86 L 12/28/18 12:16 12/28/18 12:16 12/28/18 19:01 12/28/18 19:01 12/28/18 18:01 - Laboratory Result Diagrams: 12/28/18 15:58 12/28/18 15:58 Laboratory results interpreted by me: 12/28/18 12/28/18 12/28/18 12:55 15:58 15:58 Hgb 11.6 L Hct 34.8 L PT 17.7 H APTT 46.9 H Est GFR (Non-Af Amer) NT-Pro-B Natriuret Pep Urine Protein 30 H Ur Leukocyte Esterase TRACE H Urine Ascorbic Acid 40 H 12/28/18 12/28/18 15:58 15:58 Hgb Hct PT APTT Est GFR (Non-Af Amer) 55 L NT-Pro-B Natriuret Pep 1430 H Urine Protein Ur Leukocyte Esterase Urine Ascorbic Acid Critical Care Note - Critical Care Note Total time excluding time spent on procedures (mins): 35 Comments: Atrial fibrillation with rapid ventricular response, immediate medication administration, consultation with wash tank tender, coordination of care. Discharge - Discharge Clinical Impression: Atrial fibrillation with rapid ventricular response Condition: Good Disposition: ADMITTED INPATIENT Admitting Provider: Coty (Hospitalist) Unit Admitted: [facility]
[2018-12-28 16:48] LABS: CREATINE KINASE MB 0.92 ng/mL (<4.55); TROPONIN I 0.027 ng/mL
[2018-12-28] MEDS ORDERED: DILTIAZEM HCL/D5W 125 MG/125 ML RTUINJ IV PRN (16:51)
[2018-12-28] MEDS ORDERED: DILTIAZEM HCL INJ 25 MG/5 ML VIAL IV ONE (16:51)
[2018-12-28] MEDS ORDERED: ASPIRIN 81 MG TABLET, CHEWABLE PO ONE (16:54)
--- NOTE | 2018-12-28 18:35 | PDOC H&P ---
History of Present Illness Admission Date/PCP: 12/28/18 18:02 GROVER ROME MD History of Present Illness: PREET MEDRANO is a 73 year old female with a history of atrial fibrillation who was recently in the hospital a couple of weeks ago because the sotalol that she was taking made her bradycardic. She was taken off of the sotalol and was not put on any other rate controlling agent. She is anticoagulated. She also takes medication for blood pressure. She felt like she had been doing fine and her blood pressure had been controlled, but she said she felt like more of the medication she was taken just made her feel poor in general and made her lose her appetite. She does not know which one it was. At any rate, she said she was praying today and she started to feel some palpitations and went to her primary care doctor's office. They noted that she was tachycardic in the 130s a nd sent her to the ER. Heart rate was in the 130s here and she was noted to be in atrial fibrillation with RVR. She had no other hemodynamic or metabolic derangements. She was actually hoping she could go home. She is being admitted to be put on a Cardizem drip for titration for rate control. Past Medical History Cardiac Medical History: Reports: Atrial Fibrillation, Coronary Artery Disease, Myocardial Infarction, Hyperlipidema, Hypertension Denies: DVT, Pulmonary Embolism Pulmonary Medical History: Reports: Sleep Apnea - CPAP pressure 15, room air Denies: Asthma, Chronic Obstructive Pulmonary Disease (COPD), Tuberculosis Neurological Medical History: Denies: Seizures Endocrine Medical History: Denies: Diabetes Mellitus Type 1, Diabetes Mellitus Type 2, Hyperthyroidism, Hypothyroidism GI Medical History: Reports: Gastroesophageal Reflux Disease Denies: Cirrhosis, Hepatitis Musculoskeltal Medical History: Reports: Arthritis, Gout Psychiatric Medical History: Denies: Depression Infectious Medical History: Denies: Clostridium Difficile, Methicillin-Resistant Staph Aureus Past Surgical History Past Surgical History: Reports: Cardiac Catheterization - October 05, 2016, Dr. Elvis Field [facility] Coronary Artery Bypass Graft - 2005, three-vessel, Coronary Stent, Hysterectomy Social History Lives with: Family Smoking Status: Former Smoker Frequency of Alcohol Use: None Hx Recreational Drug Use: No Drugs: None Hx Prescription Drug Abuse: No Family History Family History: Reviewed & Not Pertinent Parental Family History Reviewed: Yes - Coronary artery disease Children Family History Reviewed: Yes - Hypertension Sibling(s) Family History Reviewed.: Yes - Hypertension Medication/Allergy Home Medications: Potassium Chloride [K-Tab ER] 10 meq PO DAILY 01/18/17 Apixaban [Eliquis 5 mg Tablet] 5 mg PO BID 11/26/17 Cyanocobalamin (Vitamin B-12) [Vitamin B12] 2,500 mcg PO DAILY 11/26/17 Furosemide [Lasix 20 mg Tablet] 20 mg PO QAMP PRN 11/26/17 Losartan Potassium 50 mg PO Q12 11/26/17 Meclizine HCl [Antivert 25 mg Tablet] 25 mg PO BIDP PRN 11/26/17 Nifedipine [Nifedipine ER] 30 mg PO QAM 11/26/17 Warden-3 Fatty Acids/Fish Oil [Fish Oil 1,000 mg Capsule] 1 each PO DAILY 11/26/17 Sertraline HCl [Zoloft 50 mg Tablet] 50 mg PO QAM 11/26/17 Aspirin [Aspirin 81 mg Chewable Tablet] 81 mg PO DAILY tab.chew 11/28/17 Chlorthalidone [Hygroton 25 mg Tablet] 12.5 mg PO DAILY 11/03/18 Montelukast Sodium [Singulair 10 mg Tablet] 10 mg PO QHS 11/03/18 Omeprazole 40 mg PO DAILY 11/03/18 Rosuvastatin Calcium [Crestor 10 mg Tablet] 10 mg PO QHS 11/03/18 Sotalol HCl [Betapace 80 mg Tablet] 40 mg PO Q12 11/03/18 Allergies/Adverse Reactions: amlodipine besylate [From [facility]] Adverse Reaction (Unknown, Verified 12/28/18 12:32) cough Review of Systems All systems: reviewed and no additional remarkable complaints except as stated - All systems were reviewed and were negative except as noted above Physical Exam Vital Signs: Temp Pulse Resp BP Pulse Ox 98.1 F 130 H 18 118/81 92 12/28/18 12:16 12/28/18 12:16 12/28/18 12:16 12/28/18 12:16 12/28/18 12:16 Intake & Output 12/27/18 12/28/18 12/29/18 06:59 06:59 06:59 Weight 79.3 kg General appearance: PRESENT: no acute distress, cooperative, obese Head exam: PRESENT: atraumatic, normocephalic Eye exam: PRESENT: EOMI, PERRLA. ABSENT: conjunctival injection, nystagmus, scleral icterus Ear exam: PRESENT: normal external ear exam Mouth exam: PRESENT: moist, neck supple Teeth exam: PRESENT: poor dentation Throat exam: ABSENT: post pharyngeal erythema Neck exam: PRESENT: full ROM. ABSENT: carotid bruit, JVD, lymphadenopathy, meningismus, tenderness, thyromegaly Respiratory exam: PRESENT: clear to auscultation shasha, symmetrical, unlabored. ABSENT: accessory muscle use, chest wall tenderness, crackles, prolonged expiratory phas, rhonchi, tachypnea, wheezes Cardiovascular exam: PRESENT: irregular rhythm, tachycardia Pulses: PRESENT: normal carotid pulses Vascular exam: PRESENT: normal capillary refill GI/Abdominal exam: PRESENT: normal bowel sounds, soft. ABSENT: distended, guarding, rebound, tenderness Extremities exam: ABSENT: clubbing, pedal edema Musculoskeletal exam: PRESENT: ambulatory, normal inspection. ABSENT: deformity Neurological exam: PRESENT: alert, awake, oriented to person, oriented to place, oriented to time, oriented to situation, CN II-XII grossly intact, normal gait. ABSENT: motor sensory deficit Psychiatric exam: PRESENT: appropriate affect, normal mood Skin exam: PRESENT: dry, warm Results Laboratory Results: 12/28/18 15:58 12/28/18 15:58 12/28/18 12/28/18 12/28/18 12:55 15:58 15:58 WBC 6.8 RBC 3.77 Hgb 11.6 L Hct 34.8 L MCV 92 MCH 30.9 MCHC 33.5 RDW 13.7 Plt Count 246 Seg Neutrophils % 64.0 Lymphocytes % 26.2 Monocytes % 7.3 Eosinophils % 1.1 Basophils % 1.4 Absolute Neutrophils 4.3 Absolute Lymphocytes 1.8 Absolute Monocytes 0.5 Absolute Eosinophils 0.1 Absolute Basophils 0.1 Sodium 141.7 Potassium 4.2 Chloride 107 Carbon Dioxide 26 Anion Gap 9 BUN 14 Creatinine 0.99 Est GFR ( Amer) > 60 Est GFR (Non-Af Amer) 55 L Glucose 110 Calcium 10.2 Total Bilirubin 0.6 AST 23 ALT 11 Alkaline Phosphatase 68 Total Protein 8.2 Albumin 4.9 Urine Color NOÉ Urine Appearance CLOUDY Urine pH 5.0 Ur Specific [place] 1.023 Urine Protein 30 H Urine Glucose (UA) NEGATIVE Urine Ketones NEGATIVE Urine Blood NEGATIVE Urine Nitrite NEGATIVE Ur Leukocyte Esterase TRACE H Urine WBC (Auto) 9 Urine RBC (Auto) 1 12/28/18 12/28/18 12/28/18 15:58 15:58 15:58 Creatine Kinase 88 CK-MB (CK-2) 0.92 Troponin I 0.027 NT-Pro-B Natriuret Pep 1430 H Impressions: Chest X-Ray 12/28/18 12:37 IMPRESSION: Cardiomegaly without pulmonary edema. Assessment and Plan - Diagnosis (1) Atrial fibrillation with rapid ventricular response Is this a current diagnosis for this admission?: Yes Plan: We will stop nifedipine and put her on a Cardizem drip. We will continue Eliquis. With any luck we can get her rate under control with Cardizem and then put her on oral Cardizem for rate control, and if her blood pressure is well enough controlled as well we should be able to stop the nifedipine altogether. (2) Dyslipidemia Is this a current diagnosis for this admission?: Yes Plan: Continue Crestor (3) GERD (gastroesophageal reflux disease) Qualifiers: Esophagitis presence: without esophagitis Qualified Code(s): K21.9 - Gastro-esophageal reflux disease without esophagitis Is this a current diagnosis for this admission?: Yes Plan: Continue omeprazole (4) Hypertension Qualifiers: Hypertension type: essential hypertension Is this a current diagnosis for this admission?: Yes Plan: Continue Lasix, losartan, and as noted above will substitute Cardizem for her nifedipine. She is now says she thinks that it was the hydralazine that was making her feel bad so were going to hold that for now because she has not been taking it. - Time Time Spent with patient: 35 or more minutes - Inpatient Certification Based on my medical assessment, after consideration of the patient's comorbidities, presenting symptoms, or acuity I expect that the services needed warrant INPATIENT care.: Yes I certify that my determination is in accordance with my understanding of Medicare's requirements for reasonable and necessary INPATIENT services [42 CFR 412.3e].: Yes Medical Necessity: Need Close Monitoring Due to Risk of Patient Decompensation, Need For Continuous Telemetry Monitoring, Risk of Complication if Not Cared For in Hospital
[2018-12-28] MEDS: DILTIAZEM HCL/D5W 125 MG/125 ML RTUINJ IV PRN (19:52)
--- NOTE | 2018-12-29 00:05 | EKG REPORT ---
SEVERITY:- ABNORMAL ECG - SINUS TACHYCARDIA LVH WITH SECONDARY REPOLARIZATION ABNORMALITY BORDERLINE PROLONGED QT INTERVAL : Confirmed by: Olesya Escobar 29-Dec-2018 00:05:01
[2018-12-29 05:27] LABS: HEMATOCRIT 28.9 % (36.0-47.0); HEMOGLOBIN 9.9 g/dL (12.0-15.5); MEAN CORPUSCULAR HGB CONC 34.3 g/dL (32.0-36.0); MEAN CORPUSCULAR VOLUME 90 fl (80-97); PLATELET COUNT 194 10^3/uL (150-450); RED CELL DISTRIBUTION WIDTH 13.8 % (11.5-14.0); WHITE BLOOD COUNT 5.5 10^3/uL (4.0-10.5)
[2018-12-29 05:45] LABS: ANION GAP 7 (5-19); BLOOD UREA NITROGEN 14 mg/dL (7-20); CALCIUM 9.7 mg/dL (8.4-10.2); CARBON DIOXIDE 25 mmol/L (22-30); CHLORIDE 110 mmol/L (98-107); GLUCOSE 103 mg/dL (75-110); POTASSIUM 3.5 mmol/L (3.6-5.0)
[2018-12-29] MEDS: DILTIAZEM HCL/D5W 125 MG/125 ML RTUINJ IV PRN (09:15)
[2018-12-29] MEDS: PANTOPRAZOLE SODIUM 40 MG TABLET.DR PO SCH (09:16)
[2018-12-29] MEDS: SERTRALINE HCL 50 MG TABLET PO SCH (09:16)
[2018-12-29] MEDS: APIXABAN 5 MG TABLET PO SCH ×2 (09:16→21:42)
[2018-12-29] MEDS: LOSARTAN POTASSIUM 50 MG TABLET PO SCH ×2 (09:16→21:41)
[2018-12-29] MEDS ORDERED: DILTIAZEM HCL 120 MG CAP.SR.24H PO ONE (14:28)
--- NOTE | 2018-12-29 16:32 | PDOC PROGRESS REPORT ---
Subjective Progress Note for:: 12/29/18 Subjective:: No adverse events overnight. No new complaints. She feels great. Heart rate is been well controlled. She is only on 5 mg/h on the Cardizem drip, she has had, however, few episodes of her heart rate went a little bit low, but most the time she is in the 60s. Reason For Visit: ATRIAL FIBRILLATION WITH RAPID VENTRICULAR Physical Exam Vital Signs: Temp Pulse Resp BP Pulse Ox 97.6 F 65 16 136/70 H 100 12/29/18 15:22 12/29/18 15:22 12/29/18 15:22 12/29/18 15:22 12/29/18 15:22 Intake & Output 12/28/18 12/29/18 12/30/18 06:59 06:59 06:59 Intake Total 371 739 Output Total 500 550 Balance -129 189 Weight 79.1 kg General appearance: PRESENT: no acute distress, cooperative, obese Respiratory exam: PRESENT: clear to auscultation shasha, symmetrical, unlabored. ABSENT: accessory muscle use, chest wall tenderness, crackles, prolonged expiratory phas, rhonchi, tachypnea, wheezes Cardiovascular exam: PRESENT: irregular rhythm Pulses: PRESENT: normal carotid pulses Vascular exam: PRESENT: normal capillary refill GI/Abdominal exam: PRESENT: normal bowel sounds, soft. ABSENT: distended, guarding, rebound, tenderness Extremities exam: ABSENT: clubbing, pedal edema Musculoskeletal exam: PRESENT: normal inspection. ABSENT: deformity Neurological exam: PRESENT: alert, awake, oriented to person, oriented to place, oriented to time, oriented to situation Psychiatric exam: PRESENT: appropriate affect, normal mood Skin exam: PRESENT: dry, warm Results Laboratory Results: 12/29/18 04:27 12/29/18 04:27 12/28/18 12/29/18 12/29/18 15:58 04:27 04:27 WBC 5.5 RBC 3.20 L Hgb 9.9 L Hct 28.9 L MCV 90 MCH 31.0 MCHC 34.3 RDW 13.8 Plt Count 194 Sodium 141.7 142.0 Potassium 4.2 3.5 L Chloride 107 110 H Carbon Dioxide 26 25 Anion Gap 9 7 BUN 14 14 Creatinine 0.99 0.85 Est GFR ( Amer) > 60 > 60 Est GFR (Non-Af Amer) 55 L > 60 Glucose 110 103 Calcium 10.2 9.7 Total Bilirubin 0.6 AST 23 ALT 11 Alkaline Phosphatase 68 Total Protein 8.2 Albumin 4.9 12/28/18 12/28/18 12/28/18 15:58 15:58 15:58 Creatine Kinase 88 CK-MB (CK-2) 0.92 Troponin I 0.027 NT-Pro-B Natriuret Pep 1430 H Impressions: Chest X-Ray 12/28/18 12:37 IMPRESSION: Cardiomegaly without pulmonary edema. Assessment and Plan - Diagnosis (1) Atrial fibrillation with rapid ventricular response Is this a current diagnosis for this admission?: Yes Plan: According to the manufactures insert, 5 mg an hour of Cardizem should be transitioned over to 180 mg a day of oral Cardizem. I am going to start her on 120 mg because of believe this will help keep her heart rate under control without making her bradycardic. (2) Dyslipidemia Is this a current diagnosis for this admission?: Yes Plan: Continue Crestor (3) GERD (gastroesophageal reflux disease) Qualifiers: Esophagitis presence: without esophagitis Qualified Code(s): K21.9 - Gastro-esophageal reflux disease without esophagitis Is this a current diagnosis for this admission?: Yes Plan: Continue omeprazole (4) Hypertension Qualifiers: Hypertension type: essential hypertension Is this a current diagnosis for this admission?: Yes Plan: Well-controlled on her current regimen. We will continue with Cardizem and losartan - Time Time Spent with patient: 15-24 minutes
[2018-12-29] MEDS: ATORVASTATIN CALCIUM 20 MG TABLET PO SCH (21:42)
[2018-12-30 05:35] LABS: HEMATOCRIT 29.6 % (36.0-47.0); HEMOGLOBIN 10.2 g/dL (12.0-15.5); MEAN CORPUSCULAR HEMOGLOBIN 31.4 pg (27.0-33.4); MEAN CORPUSCULAR HGB CONC 34.4 g/dL (32.0-36.0); MEAN CORPUSCULAR VOLUME 91 fl (80-97); PLATELET COUNT 187 10^3/uL (150-450); RED BLOOD COUNT 3.25 10^6/uL (3.72-5.28); RED CELL DISTRIBUTION WIDTH 13.7 % (11.5-14.0)
[2018-12-30 05:53] LABS: ANION GAP 8 (5-19); BLOOD UREA NITROGEN 16 mg/dL (7-20); CALCIUM 9.7 mg/dL (8.4-10.2); CARBON DIOXIDE 25 mmol/L (22-30); CHLORIDE 109 mmol/L (98-107); GLUCOSE 100 mg/dL (75-110); POTASSIUM 3.6 mmol/L (3.6-5.0)
[2018-12-30] MEDS: PANTOPRAZOLE SODIUM 40 MG TABLET.DR PO SCH (06:42)
[2018-12-30] MEDS: APIXABAN 5 MG TABLET PO SCH ×2 (09:08→21:44)
[2018-12-30] MEDS: LOSARTAN POTASSIUM 50 MG TABLET PO SCH ×2 (09:08→21:45)
[2018-12-30] MEDS: SERTRALINE HCL 50 MG TABLET PO SCH (09:08)
[2018-12-30] MEDS ORDERED: DILTIAZEM HCL 120 MG CAP.SR.24H PO SCH (10:00)
[2018-12-30] MEDS ORDERED: METOPROLOL TARTRATE 25 MG TABLET PO SCH (10:00)
[2018-12-30] MEDS ORDERED: METOPROLOL TARTRATE PF/INJ 5 MG/5 ML SDV IV ONE (10:45)
--- NOTE | 2018-12-30 14:29 | PDOC PROGRESS REPORT ---
Subjective Progress Note for:: 12/30/18 Subjective:: No adverse events overnight. No new complaints. While she is at rest her heart rate is stable in the 70s and 80s, when she gets up to ambulate and jump up in the 120s 130s. She says she can feel the palpitations whenever it happens. She does not have any chest pain. When she rests her heart rate settled down she feels better. Reason For Visit: ATRIAL FIBRILLATION WITH RAPID VENTRICULAR Physical Exam Vital Signs: Temp Pulse Resp BP Pulse Ox 97.8 F 94 16 132/86 H 100 12/30/18 11:39 12/30/18 11:39 12/30/18 11:39 12/30/18 11:39 12/30/18 11:39 Intake & Output 12/29/18 12/30/18 12/31/18 06:59 06:59 06:59 Intake Total 371 1201 Output Total 500 1000 Balance -129 201 Weight 79.1 kg 78.8 kg General appearance: PRESENT: no acute distress, cooperative, obese Respiratory exam: PRESENT: clear to auscultation shasha, symmetrical, unlabored. ABSENT: accessory muscle use, chest wall tenderness, crackles, prolonged expiratory phas, rhonchi, tachypnea, wheezes Cardiovascular exam: PRESENT: irregular rhythm Pulses: PRESENT: normal carotid pulses Vascular exam: PRESENT: normal capillary refill GI/Abdominal exam: PRESENT: normal bowel sounds, soft. ABSENT: distended, guarding, rebound, tenderness Extremities exam: ABSENT: clubbing, pedal edema Musculoskeletal exam: PRESENT: normal inspection. ABSENT: deformity Neurological exam: PRESENT: alert, awake, oriented to person, oriented to place, oriented to time, oriented to situation Psychiatric exam: PRESENT: appropriate affect, normal mood Skin exam: PRESENT: dry, warm Results Laboratory Results: 12/30/18 04:49 12/30/18 04:49 12/30/18 12/30/18 04:49 04:49 WBC 5.0 RBC 3.25 L Hgb 10.2 L Hct 29.6 L MCV 91 MCH 31.4 MCHC 34.4 RDW 13.7 Plt Count 187 Sodium 142.0 Potassium 3.6 Chloride 109 H Carbon Dioxide 25 Anion Gap 8 BUN 16 Creatinine 0.95 Est GFR ( Amer) > 60 Est GFR (Non-Af Amer) 58 L Glucose 100 Calcium 9.7 12/28/18 12/28/18 12/28/18 15:58 15:58 15:58 Creatine Kinase 88 CK-MB (CK-2) 0.92 Troponin I 0.027 NT-Pro-B Natriuret Pep 1430 H Impressions: Chest X-Ray 12/28/18 12:37 IMPRESSION: Cardiomegaly without pulmonary edema. Assessment and Plan - Diagnosis (1) Atrial fibrillation with rapid ventricular response Is this a current diagnosis for this admission?: Yes Plan: Because of her heart rate response when she ambulates, I do not think I am going to be able to continue to use Cardizem. I have stopped it and have switched her over to Toprol-XL. We will dosing it twice a day. We will monitor her response to this. If this controls her heart rate well enough during rest and activity without making her bradycardic, we can send her home tomorrow. (2) Dyslipidemia Is this a current diagnosis for this admission?: Yes Plan: Continue Crestor (3) GERD (gastroesophageal reflux disease) Qualifiers: Esophagitis presence: without esophagitis Qualified Code(s): K21.9 - Gastro-esophageal reflux disease without esophagitis Is this a current diagnosis for this admission?: Yes Plan: Continue omeprazole (4) Hypertension Qualifiers: Hypertension type: essential hypertension Qualified Code(s): I10 - Essential (primary) hypertension Is this a current diagnosis for this admission?: Yes Plan: Well-controlled on her current regimen. We will continue with Cardizem and losartan - Time Time Spent with patient: 15-24 minutes
[2018-12-30] MEDS: ATORVASTATIN CALCIUM 20 MG TABLET PO SCH (21:44)
[2018-12-30] MEDS: METOPROLOL SUCCINATE 25 MG TAB.SR.24H PO SCH (21:45)
[2018-12-31 06:11] LABS: HEMATOCRIT 29.6 % (36.0-47.0); HEMOGLOBIN 10.2 g/dL (12.0-15.5); MEAN CORPUSCULAR HEMOGLOBIN 31.1 pg (27.0-33.4); MEAN CORPUSCULAR HGB CONC 34.4 g/dL (32.0-36.0); MEAN CORPUSCULAR VOLUME 91 fl (80-97); PLATELET COUNT 200 10^3/uL (150-450); RED BLOOD COUNT 3.27 10^6/uL (3.72-5.28); RED CELL DISTRIBUTION WIDTH 13.5 % (11.5-14.0); WHITE BLOOD COUNT 5.3 10^3/uL (4.0-10.5)
[2018-12-31 06:35] LABS: ANION GAP 9 (5-19); BLOOD UREA NITROGEN 14 mg/dL (7-20); CALCIUM 9.5 mg/dL (8.4-10.2); CARBON DIOXIDE 24 mmol/L (22-30); CHLORIDE 109 mmol/L (98-107); GLUCOSE 104 mg/dL (75-110); POTASSIUM 3.8 mmol/L (3.6-5.0)
[2018-12-31] MEDS: PANTOPRAZOLE SODIUM 40 MG TABLET.DR PO SCH (09:27)
[2018-12-31] MEDS: SERTRALINE HCL 50 MG TABLET PO SCH (09:28)
[2018-12-31] MEDS: METOPROLOL SUCCINATE 25 MG TAB.SR.24H PO SCH (09:28)
[2018-12-31] MEDS: LOSARTAN POTASSIUM 50 MG TABLET PO SCH (09:28)
[2018-12-31] MEDS: APIXABAN 5 MG TABLET PO SCH (09:28)
[2018-12-31 11:34] VITALS: BP 139/82
--- NOTE | 2018-12-31 16:50 | PDOC DISCHARGE SUMMARY ---
General - Admit/Disc Date/PCP Admission Date/Primary Care Provider: 12/28/18 18:02 GROVER ROME MD Discharge Date: 12/31/18 - Discharge Diagnosis (1) Atrial fibrillation with rapid ventricular response Is this a current diagnosis for this admission?: Yes Summary: Was taken off of sotalol previously because it made her bradycardic. She was consistently tachycardic in the 130s when she first came in. We put her initially on Cardizem but it could not control her heart rate with activity, and her heart rate went up to around 130 whenever she would ambulate. We put her on metoprolol instead, and while it improved somewhat on a very low dose, she was still get a little bit tachycardic when she ambulated. She did say, however, that she was feeling better. I have put her on 50 mg of Toprol-XL twice a day. She was already on Eliquis and will continue that. (2) Dyslipidemia Is this a current diagnosis for this admission?: Yes Summary: Continue her home medication (3) GERD (gastroesophageal reflux disease) Is this a current diagnosis for this admission?: Yes Summary: Continued her home medication (4) Hypertension Is this a current diagnosis for this admission?: Yes Summary: Well-controlled on her home medication - Additional Information Resuscitation Status: Full Code Discharge Diet: Cardiac Discharge Activity: Balance Activity w/Rest, Slowly Increase Activity Prescriptions: Metoprolol Succinate [Toprol Xl 50 mg Tab.sr] 50 mg PO BID #60 tab.sr.24h Metoprolol Succinate [Toprol Xl 50 mg Tab.sr] 50 mg PO BID #60 tab.sr.24h Home Medications: Apixaban [Eliquis 5 mg Tablet] 5 mg PO Q12 11/26/17 Furosemide [Lasix 20 mg Tablet] 20 mg PO DAILYP PRN 11/26/17 Losartan Potassium 50 mg PO Q12 11/26/17 Nifedipine [Nifedipine ER] 60 mg PO DAILY 11/26/17 Sertraline HCl [Zoloft 50 mg Tablet] 50 mg PO DAILY 11/26/17 Omeprazole 40 mg PO Q6AM 11/03/18 Rosuvastatin Calcium [Crestor 10 mg Tablet] 10 mg PO QHS 11/03/18 Metoprolol Succinate [Toprol Xl 50 mg Tab.sr] 50 mg PO BID #60 tab.sr.24h 12/31/18 Metoprolol Succinate [Toprol Xl 50 mg Tab.sr] 50 mg PO BID #60 tab.sr.24h 12/31/18 History of Present Illness History of Present Illness: PREET MEDRANO is a 73 year old female with a history of atrial fibrillation who was recently in the hospital a couple of weeks ago because the sotalol that she was taking made her bradycardic. She was taken off of the sotalol and was not put on any other rate controlling agent. She is anticoagulated. She also takes medication for blood pressure. She felt like she had been doing fine and her blood pressure had been controlled, but she said she felt like more of the medication she was taken just made her feel poor in general and made her lose her appetite. She does not know which one it was. At any rate, she said she was praying today and she started to feel some palpitations and went to her primary care doctor's office. They noted that she was tachycardic in the 130s and sent her to the ER. Heart rate was in the 130s here and she was noted to be in atrial fibrillation with RVR. She had no other hemodynamic or metabolic derangements. She was actually hoping she could go home. She is being admitted to be put on a Cardizem drip for titration for rate control. Hospital Course Hospital Course: As noted above the big issue was keeping her heart rate controlled with activ ity. I had her on 25 mg of Toprol-XL twice a day here and she was still getting a little tachycardic with activity but she was feeling better. 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 Dietz early next week. She will resume her other medications as her blood pressure was not too much affected by the addition of the metoprolol. She was instructed to pay attention to how she was feeling and if she started feeling strange in any way that she should come back and to be evaluated. She verbalized her understanding. Her labs and examination were reassuring and she was discharged in good condition. Physical Exam Vital Signs: Temp Pulse Resp BP Pulse Ox 97.3 F 105 H 17 139/82 H 100 12/31/18 12:58 12/31/18 12:58 12/31/18 12:58 12/31/18 12:58 12/31/18 12:58 Intake & Output 12/30/18 12/31/18 01/01/19 06:59 06:59 06:59 Intake Total 1201 1040 Output Total 1000 325 Balance 201 715 Weight 78.8 kg 78.3 kg General appearance: PRESENT: no acute distress, cooperative, obese Respiratory exam: PRESENT: clear to auscultation shasha, symmetrical, unlabored. ABSENT: accessory muscle use, chest wall tenderness, crackles, prolonged expiratory phas, rhonchi, tachypnea, wheezes Cardiovascular exam: PRESENT: irregular rhythm Pulses: PRESENT: normal carotid pulses Vascular exam: PRESENT: normal capillary refill GI/Abdominal exam: PRESENT: normal bowel sounds, soft. ABSENT: distended, guarding, rebound, tenderness Extremities exam: ABSENT: clubbing, pedal edema Musculoskeletal exam: PRESENT: normal inspection. ABSENT: deformity Neurological exam: PRESENT: alert, awake, oriented to person, oriented to place, oriented to time, oriented to situation Psychiatric exam: PRESENT: appropriate affect, normal mood Skin exam: PRESENT: dry, warm Results Laboratory Results: 12/31/18 05:32 12/31/18 05:32 12/31/18 12/31/18 05:32 05:32 WBC 5.3 RBC 3.27 L Hgb 10.2 L Hct 29.6 L MCV 91 MCH 31.1 MCHC 34.4 RDW 13.5 Plt Count 200 Sodium 142.0 Potassium 3.8 Chloride 109 H Carbon Dioxide 24 Anion Gap 9 BUN 14 Creatinine 0.92 Est GFR ( Amer) > 60 Est GFR (Non-Af Amer) > 60 Glucose 104 Calcium 9.5 12/28/18 12/28/18 12/28/18 15:58 15:58 15:58 Creatine Kinase 88 CK-MB (CK-2) 0.92 Troponin I 0.027 NT-Pro-B Natriuret Pep 1430 H Impressions: Chest X-Ray 12/28/18 12:37 IMPRESSION: Cardiomegaly without pulmonary edema. Qualifiers - * PATIENT BEING DISCHARGED WITH ANY OF THE FOLLOWING DIAGNOSIS: No Acute Heart Failure - Is this a Heart Failure Patient?: No Plan Time Spent: Greater than 30 Minutes
== END 2018-12-31 13:20 | disposition home or self-care (01) | DRG 310 ==
LOC: ER 11:55 → EH 18:02 → 3N 21:17
PROVIDERS: ADMIT Family Medicine; ATTEND Family Medicine
DX: I48.91 Unspecified atrial fibrillation (principal); R42 Dizziness and giddiness; I10 Essential (primary) hypertension; I25.10 Atherosclerotic heart disease of native coronary artery without angina pectoris; E78.00 Pure hypercholesterolemia, unspecified; K21.9 Gastro-esophageal reflux disease without esophagitis; G47.30 Sleep apnea, unspecified; I25.2 Old myocardial infarction; Z79.01 Long term (current) use of anticoagulants; Z79.899 Other long term (current) drug therapy
CPT/HCPCS: 36415; 71046; 80048; 80053; 81001; 82550; 82553; 82962; 83880; 84484; 85025; 85027; 85610; 85730; 93005; 93010; 99291; J3490

== ENCOUNTER → 2019-08-24 | Outpatient (CLI) | payer MEDICARE, MEDICAID ==
--- NOTE | 2019-08-24 13:00 | WOMENS IMAGING REPORT ---
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 LIMITATIONS: None. FINDINGS: LUMBAR SPINE: The bone mineral density (BMD) measured from L1-L4 in the AP projection correlates with a T-score of -1.5, which is osteopenia as defined by the World Health Organization. BMD Change vs Baseline: +0.6% HIP: The bone mineral density (BMD) measured in the left hip correlates with a T-score of -1.2 in the femo ral neck, which is osteopenia as defined by the World Health Organization. BMD Change vs Baseline: +5.2% 10 year Fracture Risk Assessment: Major Osteoporotic Fracture: 3.6% Hip Fracture: 0.4% IMPRESSION: 1. LUMBAR SPINE WHO CLASSIFICATION: OSTEOPENIA. 2. HIP WHO CLASSIFICATION: OSTEOPENIA. OVERALL ASSESSMENT: WHO CLASSIFICATION: OSTEOPENIA. COMMENT: The World Health Organization defines low BMD as follows: T-score: Normal: Greater than -1.0 Osteopenia: Between -1.0 and -2.5 Osteoporosis: Less than -2.5 without fractures Established osteoporosis: Less than -2.5 with fractures In general, you may wish to consider: Diagnosis Treatment Follow-up DEXA Normal BMD Prevention 2-3 years Osteopenia Prevention/Therapy 1-2 years Osteoporosis Therapy Yearly TECHNICAL DOCUMENTATION: JOB ID: [id number] 2010 [employer]- All Rights Reserved Reading location - IP/workstation name: [email or web address]
--- NOTE | 2019-08-24 13:59 | WOMENS IMAGING REPORT ---
EXAM DESCRIPTION: 3D SCREENING MAMMO BILAT COMPLETED DATE/TIME: 08/24/2019 12:15 pm REASON FOR STUDY: Z12.31 SCREENING MAMMO Z12.31 ENCNTR SCREEN MAMMOGRAM FOR MALIGNANT NEOPLASM OF B RE M81.0 AGE-RELATED OSTEOPOROSIS W/O CURRENT PATHOLOGICAL FRAC Z78.0 ASYMPTOMATIC MENOPAUSAL STATE COMPARISON: 2014 to 2016 EXAM PARAMETERS: Views: Standard craniocaudal and mediolateral oblique views of each breast recorded using digital acquisition and breast tomosynthesis. Read with the assistance of CAD. .[facility] - R2 [employer] Version 9.2 LIMITATIONS: Left battery pack. FINDINGS: No suspicious masses, suspicious calcifications or architectural distortion. No areas of c oncern. IMPRESSION: NEGATIVE MAMMOGRAM. BIRADS 1. BREAST DENSITY: b. There are scattered areas of fibroglandular density. BIRAD: ASSESSMENT: 1 NEGATIVE RECOMMENDATION: ROUTINE SCREENING COMMENT: The patient has been notified of the results by letter per MQSA requirements. Additional no tification policies are in place for contacting patient with suspicious or incomplete findings. Quality ID #[id number]: The [employer] recommends an annual screening mammogram for women aged 40 years or over. This facility utilizes a reminder system to ensure that all patients receive reminder letters, and/or direct phone calls for appointments. This includes reminders for routine scr eening mammograms, diagnostic mammograms, or other Breast Imaging Interventions when appropriate. Th is patient will be placed in the appropriate reminder system. TECHNICAL DOCUMENTATION: FINDING NUMBER: (1) ASSESSMENT: (1) JOB ID: [id number] 2010 [employer]- All Rights Reserved Reading location - IP/workstation name: [email or web address]
== END ==
LOC: WI 11:45
PROVIDERS: ATTEND Physician Assistant
DX: Z12.31 Encounter for screening mammogram for malignant neoplasm of breast (principal); Z78.0 Asymptomatic menopausal state
CPT/HCPCS: 77063; 77067; 77080